=== PATIENT | male | born 1935 | race Caucasian/White ===

== ENCOUNTER 2017-10-09 20:10 | Emergency (ER) | payer OTHER, MEDICARE ==
[2017-10-09] MEDS ORDERED: ALBUTEROL 2.5 MG/3 ML NEB SOL ONE (20:43)
[2017-10-09] MEDS ORDERED: IPRATROPIUM BROM 0.5MG/2.5ML ONE (20:43)
[2017-10-09 20:48] LABS: Absolute Lymphocytes (CBC) 0.9 K/uL (0.7-4.9); Absolute Monocytes 0.8 K/uL (0.1-1.3); Absolute Neutrophil 3.2 K/uL (1.8-8.0); Basophils % 0.6 % (0-1.3); Eosinophils % 5.8 % (0-4.4); Hematocrit 37.9 % (39.6-49.0); MCH 30.8 pg (27.0-35.0); MCV 91.8 fL (80-100); MPV 7.2 fL (7.6-11.3); Monocytes % 15.3 % (3.3-12.3); RBC Red Blood Cell Count 4.13 M/uL (4.33-5.43)
--- NOTE | 2017-10-09 20:51 | RAD REPORT ---
EXAM DESCRIPTION: CT - Head Brain Wo Cont - 10/09/2017 8:43 pm CLINICAL HISTORY: general weakness Drowsiness COMPARISON: Head C Spine Mpr Wo Con dated 07/13/2016 TECHNIQUE: All CT scans are performed using dose optimization technique as appropriate and may inclu de automated exposure control or mA/KV adjustment according to patient size. FINDINGS: No intracranial hemorrhage, hydrocephalus or extra-axial fluid collection.No areas of brai n edema or evidence of midline shift. The paranasal sinuses and mastoids are clear. The calvarium is intact. Mild vertebral atherosclerosis . IMPRESSION: No acute intracranial abnormality.
[2017-10-09 20:58] LABS: Protime INR 1.06
--- NOTE | 2017-10-09 21:00 | RAD REPORT ---
EXAM DESCRIPTION: RAD - Chest Single View - 10/09/2017 8:53 pm CLINICAL HISTORY: COUGH Chest pain. COMPARISON: Chest Single View dated 07/13/2016; CHEST SINGLE VIEW dated 12/29/2010; CHEST SINGLE VIEW dated 12/08/2008; CHEST SINGLE VIEW dated 09/07/2006 FINDINGS: Portable technique limits examination quality. The lungs are grossly clear. The heart is normal in size. No displaced fractures.Calcified AP window lymph node likely related to previous granulomatous infection. Prominent degenerative change in both shoulders. IMPRESSION: No acute intrathoracic process suspected.
[2017-10-09 21:09] LABS: Bilirubin Direct 0.1 mg/dL (0-0.2); Bilirubin Total 0.4 mg/dL (0.2-1.0); CKMB Creatine Kinase MB 1.5 ng/mL (0.3-3.6); Potassium 3.7 mmol/L (3.5-5.1); Protein, Total 6.9 g/dL (6.4-8.2)
[2017-10-09] MEDS ORDERED: NA CHLORIDE 0.9% 1,000 ML ONE (21:41)
[2017-10-09] MEDS ORDERED: NA CHLORIDE 0.9% 250 ML ONE (21:41)
[2017-10-09 22:02] LABS: Urine Bacteria <20 /HPF (NONE SEEN); Urine RBC <5 /HPF (NONE SEEN)
[2017-10-09 22:03] LABS: Urine Culture Reflex Order NOT NEEDED
[2017-10-09 22:05] LABS: Blood Morphology Comment NOT SEEN (NOT SEEN); Platelet Estimate ADEQ
[2017-10-09 22:09] LABS: Urine Blood NEGATIVE (NEG); Urine Glucose NEGATIVE (NEG); Urine Protein 1+ (NEG)
--- NOTE | 2017-10-09 22:48 | ER ---
Nurse's Notes [facility] Name: Prasanth Barclay Sr Age: 82 yrs Sex: Male : 1935 Arrival Date: 10/09/2017 Time: 20:12 Bed 17 Private MD: Diagnosis: Cough Presentation: 10/09 20:09 Presenting complaint: EMS states: that they were toned for possible sepsis and low bp fc of 90/62. Upon there arrival pt noted to have wheezing and a cough. EMS was told that pt had syncopal episode yesterday. On EMS pts sbp was in the 150's and his heart rate fo in the 60's. Son arrived to room to state that he was having trouble waking pt up just before dinner. Transition of care: patient was received from another setting of care ([facility]-term [facility]. Onset of symptoms was October 09, 2017. Risk Assessment: Do you want to hurt yourself or someone else? Patient reports no desire to harm self or others. Initial Sepsis Screen: Does the patient meet any 2 criteria? No. Patient's initial sepsis screen is negative. Does the patient have a suspected source of infection? No. Patient's initial sepsis screen is negative. Care prior to arrival: Medication(s) given: Albuterol Neb x 1, Atrovent Neb x 1. 20:09 Method Of Arrival: EMS: [facility] 20:09 Acuity: MARYLU 3 fc Historical: - Allergies: 20:31 No Known Allergies; fc - Home Meds: 20:31 acetaminophen 500 mg Oral tab 1 tab q6hr prn [Active]; Aricept 5 mg Oral tab 1 tab once fc daily [Active]; aspirin 81 mg Oral TbEC 1 tab once daily [Active]; Lipitor 20 mg Oral tab 1 tab nightly [Active]; metoprolol tartrate 25 mg oral tab 1 tab once daily [Active]; - PMHx: 20:31 High Cholesterol; Hypertension; Dementia; muscle weakness; Hypothyroidism; Angina; fc - Immunization history:: Last tetanus immunization: unknown, Pneumococcal vaccine is up to date. - Social history:: Smoking status: Patient/guardian denies using tobacco. - Ebola Screening: : Patient negative for fever greater than or equal to 101.5 degrees Fahrenheit, and additional compatible Ebola Virus Disease symptoms Patient denies exposure to infectious person Patient denies travel to an Ebola-affected area in the 21 days before illness onset. Screenin:19 Abuse screen: Denies threats or abuse. Nutritional screening: No deficits noted. jd3 Tuberculosis screening: No symptoms or risk factors identified. Fall Risk Ambulatory Aid- Crutches/Cane/Walker (15 pts). Gait- Normal/Bed Rest/Wheelchair (0 pts) Mental Status- Overestimates/Forgets Limitations (15 pts.). Total Cisneros Fall Scale indicates Low Risk Score (25-44 pts). Fall prevention measures have been instituted. Side Rails Up X 2 Placed close to Nursing Station Frequent Obs/Assesments occuring Family Present and informed to notify staff if they need to leave bedside. Assessment: 20:16 General: Appears in no apparent distress. Behavior is calm, cooperative. Pain: Denies jd3 pain. Neuro: Level of Consciousness is awake, alert, obeys commands, Oriented to person, situation, Moves all extremities. Speech is normal, Facial symmetry appears normal, Pupils are PERRLA, Intact pt with history of dementia.. Cardiovascular: Heart tones S1 S2 present Capillary refill < 3 seconds Patient's skin is warm and dry. Respiratory: Airway is patent Respiratory effort is even, unlabored, Respiratory pattern is regular, symmetrical, Breath sounds are clear bilaterally. Parent/caregiver reports the patient having cough that is productive. GI: Abdomen is round Bowel sounds present X 4 quads. Abd is soft and non tender X 4 quads. Patient currently denies diarrhea, nausea, vomiting. : No signs and/or symptoms were reported regarding the genitourinary system. EENT: No signs and/or symptoms were reported regarding the EENT system. Derm: Skin is intact, Skin is dry, Skin is normal, Skin temperature is warm. Musculoskeletal: Circulation, motion, and sensation intact. Range of motion: intact in all extremities. 21:55 Reassessment: Patient and/or family updated on plan of care and expected duration. Pain ea level reassessed. Pt resting with eyes closed, respirations even and unlabored, chest expansions even and symmetrical. No s/s of pain or discomfort noted at this time. 22:43 Reassessment: Patient appears in no apparent distress at this time. No changes from jd3 previously documented assessment. Patient and/or family updated on plan of care and expected duration. Pain level reassessed. 23:16 Reassessment: Patient appears in no apparent distress at this time. No changes from jd3 previously documented assessment. Patient and/or family updated on plan of care and expected duration. Pain level reassessed. pt's family reported understanding of discharge instructions, assisted pt to front of ER with wheelchair. Vital Signs: 20:09 BP 156 / 64; Pulse 66; Resp 20; Temp 98.6(O); Pulse Ox 98% on R/A; Weight 77.11 kg (R); fc Height 5 ft. 4 in. (162.56 cm) (R); Pain 0/10; 22:00 BP 152 / 55; Pulse 81; Resp 18; Pulse Ox 98% on R/A; ea 22:41 BP 141 / 52; Pulse 72; Resp 19 S; Pulse Ox 97% on R/A; Pain 0/10; jd3 20:09 Body Mass Index 29.18 (77.11 kg, 162.56 cm) ED Course: 20:09 Arm band placed on Patient placed in an exam room, on a stretcher. fc 20:12 Patient arrived in ED. ds1 20:15 Malcolm Quintanilla, RN is Primary Nurse. jd3 20:20 Leif Benitez PA is PHCP. cp 20:20 Arnulfo Mayfield MD is Attending Physician. cp 20:20 Patient has correct armband on for positive identification. Bed in low position. Call jd3 light in reach. Side rails up X2. Adult w/ patient. 20:23 Triage completed. fc 20:35 Inserted saline lock: 20 gauge in right antecubital area, using aseptic technique. jd3 Blood collected. 20:42 CT completed. Patient moved to CT via stretcher. Patient moved back from CT. cw1 20:43 CT Head Brain wo Cont In Process Unspecified. EDMS 20:52 Chest Single View XRAY In Process Unspecified. EDMS 21:25 Straight cath inserted, using sterile technique, 16 Fr. Specimen obtained. Returned jd3 clear yellow urine. Patient tolerated well. 22:20 EKG done, by ED staff, reviewed by Leif HUTCHINS. cc 22:47 Arabella Holden MD is Referral Physician. cp 23:00 No provider procedures requiring assistance completed. jd3 23:16 IV discontinued, intact, bleeding controlled, No redness/swelling at site. Pressure jd3 dressing applied. Administered Medications: 21:33 Drug: Albuterol 2.5 mg Route: Inhalation; ea 21:33 Drug: Albuterol - atroVENT (3:1) (2.5 mg - 0.5 mg) 3 ml Route: Nebulizer; ea 22:06 Follow up: Response: No adverse reaction ea 21:51 Drug: NS 0.9% 1000 ml Route: IV; Rate: 75 ml/hr; Site: right antecubital; ea 23:18 Follow up: Response: No adverse reaction; IV Status: Order to discontinue infusion jd3 21:52 Drug: NS 0.9% 250 ml Route: IV; Rate: bolus; Site: right antecubital; ea 22:06 Follow up: Response: No adverse reaction; IV Status: Completed infusion; IV Intake: ea 250ml Intake: 22:06 IV: 250ml; Total: 250ml. ea Outcome: 22:47 Discharge ordered by MD. cp 23:15 Discharged to home via wheelchair, with family. jd3 23:15 Condition: stable 23:15 Discharge instructions given to family, Instructed on discharge instructions, follow up and referral plans. medication usage, Demonstrated understanding of instructions, follow-up care, medications, Prescriptions given X 2. 23:17 Patient left the ED. jd3 Signatures: Dispatcher [employer] EDMS Robyn Sanchez, RN Gia Lucio ds1 Leigh Davis cw1 Roma Epps cc Leif Benitez PA PA cp Antunez, Elena, RN RN ea Davies, Jonathon, RN RN jd3 Corrections: (The following items were deleted from the chart) 20:25 20:09 Presenting complaint: EMS states: that they were toned for possible sepsis and fc low bp of 90/62. Upon there arrival pt noted to have wheezing and a cough. EMS was told that pt had syncopal episode yesterday. Son arrived to room to state that he was having trouble waking pt up just before dinner. fc 22:43 21:20 Straight cath inserted, using sterile technique, 16 Fr. Specimen obtained. jd3 Returned clear yellow urine. Patient tolerated well. jd3
--- NOTE | 2017-10-09 22:48 | EDPHYS ---
Physician Documentation [facility] Name: Prasanth Barclay Sr Age: 82 yrs Sex: Male : 1935 Arrival Date: 10/09/2017 Time: 20:12 Bed 17 Private MD: ED Physician Arnulfo Mayfield HPI: 10/09 21:00 This 82 yrs old Male presents to ER via EMS with complaints of Cough. cp 21:00 The patient or guardian reports cough, that is intermittent, with productive sputum. cp Onset: The symptoms/episode began/occurred 1 week(s) ago. Severity of symptoms: in the emergency department the symptoms are unchanged. Associated signs and symptoms: Pertinent negatives: chest pain, diarrhea, fever, vomiting. Unable to obtain HPI due to baseline dementia. 21:00 Son reports incident today prior to dinner meal in which patient was difficult to awake cp from sleep. Historical: - Allergies: 20:31 No Known Allergies; fc - Home Meds: 20:31 acetaminophen 500 mg Oral tab 1 tab q6hr prn [Active]; Aricept 5 mg Oral tab 1 tab once fc daily [Active]; aspirin 81 mg Oral TbEC 1 tab once daily [Active]; Lipitor 20 mg Oral tab 1 tab nightly [Active]; metoprolol tartrate 25 mg oral tab 1 tab once daily [Active]; - PMHx: 20:31 High Cholesterol; Hypertension; Dementia; muscle weakness; Hypothyroidism; Angina; fc - Immunization history:: Last tetanus immunization: unknown, Pneumococcal vaccine is up to date. - Social history:: Smoking status: Patient/guardian denies using tobacco. - Ebola Screening: : Patient negative for fever greater than or equal to 101.5 degrees Fahrenheit, and additional compatible Ebola Virus Disease symptoms Patient denies exposure to infectious person Patient denies travel to an Ebola-affected area in the 21 days before illness onset. ROS: 21:05 Constitutional: Negative for body aches, chills, fever, poor PO intake. cp 21:05 Eyes: Negative for injury, pain, redness, and discharge. cp 21:05 ENT: Negative for drainage from ear(s), ear pain, sore throat, difficulty swallowing, difficulty handling secretions. 21:05 Cardiovascular: Negative for chest pain, edema, palpitations. 21:05 Respiratory: Positive for cough, Negative for wheezing. 21:05 Abdomen/GI: Negative for abdominal pain, nausea, vomiting, and diarrhea, black/tarry stool, rectal bleeding. 21:05 Back: Negative for pain at rest, pain with movement, radiated pain. 21:05 : Negative for urinary symptoms. 21:05 Skin: Negative for cellulitis, rash. 21:05 Neuro: Negative for altered mental status, dizziness, headache, seizure activity, speech changes, weakness. 21:05 All other systems are negative. Exam: 21:10 Constitutional: The patient appears in no acute distress, alert, awake, cp non-diaphoretic, non-toxic, well developed, well nourished. 21:10 Head/Face: Normocephalic, atraumatic. cp 21:10 Eyes: Periorbital structures: appear normal, Pupils: equal, round, and reactive to light and accomodation, Extraocular movements: intact throughout, Conjunctiva: normal, no exudate, no injection, Sclera: no appreciated abnormality, Lids and lashes: appear normal, bilaterally. 21:10 ENT: External ear(s): are unremarkable, Ear canal(s): are normal, clear, TM's: are normal, no evidence of bulging, no erythema, Nose: is normal, Mouth: Lips: moist, Oral mucosa: pink and intact, moist, Posterior pharynx: is normal, airway is patent, no erythema, no exudate, Voice: is normal. 21:10 Neck: ROM/movement: is normal, is supple, without pain, no range of motions limitations, no meningismus, no nuchal rigidity. 21:10 Chest/axilla: Inspection: normal, Palpation: is normal, no crepitus, no tenderness. 21:10 Cardiovascular: Rate: normal, Rhythm: regular, Edema: mild bilateral lower leg, JVD: is not appreciated. 21:10 Respiratory: the patient does not display signs of respiratory distress, Respirations: normal, no use of accessory muscles, no retractions, no splinting, no tachypnea, labored breathing, is not present, Breath sounds: are clear throughout, no decreased breath sounds, no stridor, no wheezing. 21:10 Abdomen/GI: Inspection: abdomen appears normal, Bowel sounds: active, all quadrants, Palpation: abdomen is soft and non-tender, in all quadrants, rebound tenderness, is not appreciated, voluntary guarding, is not appreciated, involuntary guarding, is not appreciated. 21:10 Back: pain, is absent, ROM is normal. 21:10 Musculoskeletal/extremity: Exam is negative for calf tenderness, decreased range of motion, deformity, injury. 21:10 Skin: cellulitis, is not appreciated, no rash present. 21:10 Neuro: Orientation: no acute changes, per family, Mentation: no acute changes, per family, able to follow commands, Cerebellar function: Romberg testing is negative, Motor: moves all fours, strength is normal. 22:30 ECG was reviewed by the Attending Physician. cp Vital Signs: 20:09 BP 156 / 64; Pulse 66; Resp 20; Temp 98.6(O); Pulse Ox 98% on R/A; Weight 77.11 kg (R); fc Height 5 ft. 4 in. (162.56 cm) (R); Pain 0/10; 22:00 BP 152 / 55; Pulse 81; Resp 18; Pulse Ox 98% on R/A; ea 22:41 BP 141 / 52; Pulse 72; Resp 19 S; Pulse Ox 97% on R/A; Pain 0/10; jd3 20:09 Body Mass Index 29.18 (77.11 kg, 162.56 cm) fc MDM: 20:21 Patient medically screened. 22:45 Data reviewed: vital signs, nurses notes, lab test result(s), EKG, radiologic studies, cp CT scan, plain films. 22:45 Test interpretation: by ED physician or midlevel provider: ECG, plain radiologic cp studies. 10/09 20:26 Order name: Urine Microscopic Only; Complete Time: 22:08 10/09 22:09 Interpretation: Reviewed. 10/09 20: Order name: Basic Metabolic Panel; Complete Time: 21:22 cp 10/09 21:22 Interpretation: Normal except: BUN 22; GFR 58. 10/09 20:26 Order name: Blood Culture Adult (2) 10/10 19: Order name: CBC with Diff; Complete Time: 22:08 cp 10/09 20:23 Interpretation: Normal except: RBC 4.13; HGB 12.7; HCT 37.9; MPV 7.2; MN% 15.3; cp EOSINOPHIL % 5.8. 10/09 20:26 Order name: Ckmb; Complete Time: 21:22 10/09 20:26 Order name: CPK; Complete Time: 21:22 10/09 20:26 Order name: Lactate; Complete Time: 21: 10/09 21:23 Interpretation: LAC 1.5; Reviewed. 10/09 20:26 Order name: LFT's; Complete Time: 21:22 10/09 21:22 Interpretation: Normal except: ALB 3.0; GLOB 3.9; A/G 0.8. 10/09 20:26 Order name: Lipase; Complete Time: 21:22 10/09 20:26 Order name: Procalcitonin; Complete Time: 21:39 10/09 21:39 Interpretation: Reviewed. 10/09 20:26 Order name: Protime (+inr); Complete Time: 21: 10/09 20:26 Order name: Ptt, Activated; Complete Time: 21:22 10/09 20:26 Order name: Troponin (emerg Dept Use Only); Complete Time: 21: 10/09 21:40 Interpretation: TROPED < 0.02; Reviewed. 10/09 20:47 Order name: Influenza Screen (a \T\ B); Complete Time: 22:11 10/09 20:26 Order name: CT Head Brain wo Cont; Complete Time: 21:01 10/09 21:01 Interpretation: Report reviewed. 10/09 20:26 Order name: Cath; Complete Time: 22:25 10/09 20:26 Order name: Chest Single View XRAY; Complete Time: 21:01 10/09 21:40 Interpretation: Report review. 10/09 20:26 Order name: Cardiac monitoring; Complete Time: 20:38 10/09 20:26 Order name: EKG - Nurse/Tech; Complete Time: 22:27 10/09 20:26 Order name: IV Saline Lock - Large Bore; Complete Time: 20:38 10/09 20:26 Order name: Labs collected and sent; Complete Time: 20:38 10/09 20:26 Order name: O2 Per Protocol; Complete Time: 20:38 10/09 21:27 Order name: Urine Dipstick--Ancillary (enter results); Complete Time: 22:11 rg2 10/09 22:11 Interpretation: Normal except: UPROT 1+. cp 10/09 22:03 Order name: Manual Differential; Complete Time: 22:08 EDMS 10/09 22:08 Interpretation: Normal except: BANDS [F] 2. cp 10/09 20:26 Order name: O2 Sat Monitoring; Complete Time: 20:38 cp 10/09 20:26 Order name: Urine Dipstick-Ancillary (obtain specimen); Complete Time: 21:52 cp EC:30 Rate is 85 beats/min. Rhythm is regular. WI interval is normal. QRS interval is cp prolonged at 108 msec. QT interval is normal. No ST changes noted. Interpreted by me. Reviewed by me. Administered Medications: 21:33 Drug: Albuterol 2.5 mg Route: Inhalation; ea 21:33 Drug: Albuterol - atroVENT (3:1) (2.5 mg - 0.5 mg) 3 ml Route: Nebulizer; ea 22:06 Follow up: Response: No adverse reaction ea 21:51 Drug: NS 0.9% 1000 ml Route: IV; Rate: 75 ml/hr; Site: right antecubital; ea 23:18 Follow up: Response: No adverse reaction; IV Status: Order to discontinue infusion jd3 21:52 Drug: NS 0.9% 250 ml Route: IV; Rate: bolus; Site: right antecubital; ea 22:06 Follow up: Response: No adverse reaction; IV Status: Completed infusion; IV Intake: ea 250ml Disposition: 10/09/17 22:47 Discharged to Home. Impression: Cough. - Condition is Stable. - Discharge Instructions: Cool Mist Vaporizers, Cough, Adult. - Prescriptions for Tessalon Perles 100 mg Oral Capsule - take 1 capsule by ORAL route every 8 hours As needed; 15 capsule. Albuterol Sulfate 2.5 mg /3 mL (0.083 %) Inhalation Solution for Nebulization - inhale 1 unit by NEBULIZATION route every 8 hours As needed; 1 box. - Medication Reconciliation Form, Thank You Letter, Antibiotic Education, Prescription Opioid Use form. - Follow up: Arabella Holden MD; When: 2 - 3 days; Reason: Recheck today's complaints. - Problem is new. - Symptoms have improved. Addendum: 10/11/2017 13:13 Co-signature as Attending Physician, Arnulfo Mayfield MD Available for consultation at p s1 all times. . Signatures: Dispatcher [employer] [facility] Robyn Sanchez, RN RN Leif Alcantar PA PA cp Antunez, Elena RN Malcolm Palencia ea RN RN jArnulfo Khalil MD MD ps1 Corrections: (The following items were deleted from the chart) 10/09 22:03 20:53 CBC Smear Scan ordered. [facility] 23:17 22:47 10/09/2017 22:47 Discharged to Home. Impression: Cough. Condition is Stable. jd3 Forms are Medication Reconciliation Form, Thank You Letter, Antibiotic Education, Prescription Opioid Use. Follow up: A Holden; When: 2 - 3 days; Reason: Recheck today's complaints. Problem is new. Symptoms have improved. cp
--- NOTE | 2017-10-11 06:55 | EKG ---
Test Date: 2017-10-09 Test Time: 22:23:51 Vallez Filter Operator: PREET MEASUREMENT RESULTS: Intervals: Rate: 85 SD: 138 QRSD: 108 QT: 360 QTc: 428 [place]: P: 40 SD: 138 QRS: 3 T: 79 INTERPRETIVE STATEMENTS: Normal sinus rhythm Intraventricular conduction delay Borderline ECG Compared to ECG 07/13/2016 19:56:49 Sinus bradycardia no longer present Electronically Signed On 10-11-17 06:54:00 CDT by Dandy Rosa
== END 2017-10-09 23:17 | disposition home or self-care (01) ==
LOC: ER 20:10
DX: R05 Cough (principal); I10 Essential (primary) hypertension; E78.00 Pure hypercholesterolemia, unspecified; F03.90 Unspecified dementia, unspecified severity, without behavioral disturbance, psychotic disturbance, mood disturbance, and anxiety; E03.9 Hypothyroidism, unspecified; Z79.82 Long term (current) use of aspirin
CPT/HCPCS: 36415; 51702; 70450; 71045; 80048; 80076; 82550; 82553; 83605; 83690; 84145; 84484; 85025; 85610; 85730; 87040 ×2; 87804 ×2; 93005; 94640; 96361; 96374; 99285; J7030; 81003; 81015; 96360

== ENCOUNTER 2019-02-09 16:21 | Emergency (ER) | payer OTHER ==
--- NOTE | 2019-02-09 17:06 | RAD REPORT ---
EXAM DESCRIPTION: CT - [id number] - 02/09/2019 4:58 pm CLINICAL HISTORY: Trauma, head and neck injury. fall COMPARISON: Head C Spine Mpr Wo Con dated 07/13/2016; Facial Bones W/ Mpr dated 02/09/2019 TECHNIQUE: Axial 5 mm thick images of the head were obtained. Axial 2 mm thick images of the cervical spine were obtained with sagittal and coronal reconstruction images generated and reviewed. All CT scans are performed using dose optimization technique as appropriate and may include automated exposure control or mA/KV adjustment according to patient size. FINDINGS: CT HEAD WITHOUT CONTRAST: No acute hemorrhage, hydrocephalus or extra-axial collection is identified.Mild generalized brain atr ophy is present with mild periventricular and deep white matter chronic microvascular ischemic change s.No areas of brain edema or midline shift. The paranasal sinuses and mastoids are clear.The calvarium is intact. CT CERVICAL SPINE WITHOUT CONTRAST: No fracture or subluxation.Moderate cervical facet arthrosis and spondylosis present.No prevertebral soft tissues swelling is identified. IMPRESSION: No acute intracranial or cervical spine findings.
--- NOTE | 2019-02-09 17:08 | RAD REPORT ---
EXAM DESCRIPTION: CT - CTFB CLINICAL HISTORY: fall Trauma, pain and swelling to face after fall COMPARISON: <Comparisons> TECHNIQUE: Axial 2 mm thick images of the face were obtained with sagittal and coronal reconstructio n images. All CT scans are performed using dose optimization technique as appropriate and may include automated exposure control or mA/KV adjustment according to patient size. FINDINGS: Examination is mildly degraded by motion artifact. No acute facial bone fracture is seen.T he mandible is intact. The globes and orbital contents are grossly unremarkable.The paranasal sinuses and mastoids are clear . IMPRESSION: Negative for facial bone fracture.The study is mildly limited by motion artifact.
[2019-02-09] MEDS ORDERED: LIDOCAINE 1% MPF 5 ML VIAL ONE (17:57)
--- NOTE | 2019-02-09 18:31 | ER ---
Nurse's Notes [facility] Name: Prasanth Barclay Sr Age: 83 yrs Sex: Male : 1935 Arrival Date: 02/09/2019 Time: 16:27 Bed 17 Private MD: Diagnosis: Fall on same level from slipping, tripping and stumbling;Laceration without foreign body of unspecified part of head Presentation: 02/09 16:28 Presenting complaint: EMS states: Patient from [facility] with dementia, who aj1 is not able to walk, decided to try to get up and walk today and fell. Laceration noted to forehead, left cheek, left upper lip. skin tear noted to left arm. Patient denies pain at this time. Patient takes ASA 81 mg daily, but does not otherwise take any blood thinners. Transition of care: patient was not received from another setting of care. Onset of symptoms was February 09, 2019. Risk Assessment: Do you want to hurt yourself or someone else? Patient reports no desire to harm self or others. Initial Sepsis Screen: Does the patient meet any 2 criteria? No. Patient's initial sepsis screen is negative. Does the patient have a suspected source of infection? No. Patient's initial sepsis screen is negative. Care prior to arrival: None. 16:28 Method Of Arrival: EMS: [facility] aj 16:28 Acuity: MARYLU 3 aj1 Triage Assessment: 16:37 General: Appears in no apparent distress. General: Behavior is calm, cooperative. Pain: aj1 Denies pain. Historical: - Allergies: 16:37 No Known Allergies; aj1 - Home Meds: 16:37 Aricept 23 mg oral tab 1 tab once daily [Active]; acetaminophen 500 mg Oral tab 1 tab aj1 q6hr prn [Active]; aspirin 81 mg Oral TbEC 1 tab once daily [Active]; Claritin 10 mg Oral tab 1 tab once daily [Active]; docusate sodium 100 mg Oral cap 1 cap 2 times per day [Active]; Flomax 0.4 mg Oral cp24 1 cap once daily [Active]; Lipitor 20 mg Oral tab 1 tab nightly [Active]; memantine 10 mg oral tab 1 tab 2 times per day [Active]; sertraline 100 mg oral tab 1 tab once daily [Active]; metoprolol tartrate 25 mg Oral tab 1 tab once daily [Active]; Vitamin D3 5,000 unit oral tab daily [Active]; - PMHx: 16:37 Hypertension; High Cholesterol; Hypothyroidism; BPH; constipation; Depression; aj1 Dementia; Angina; MUSCLE WEAKNESS; dysphagia; - Immunization history:: Adult Immunizations up to date. - Social history:: Smoking status: Patient/guardian denies using tobacco. - Ebola Screening: : Patient denies travel to an Ebola-affected area in the 21 days before illness onset. Screenin:39 Abuse screen: Denies threats or abuse. Denies injuries from another. Nutritional aj1 screening: No deficits noted. Tuberculosis screening: No symptoms or risk factors identified. Assessment: 16:39 General: Appears in no apparent distress. comfortable, Behavior is calm, cooperative, aj1 appropriate for age. Pain: Denies pain. Neuro: Level of Consciousness is awake, alert, obeys commands, Oriented to person. Cardiovascular: Heart tones S1 S2 present Patient's skin is warm and dry. Rhythm is sinus bradycardia. Respiratory: Airway is patent Respiratory effort is even, unlabored, Respiratory pattern is regular, symmetrical. GI: No signs and/or symptoms were reported involving the gastrointestinal system. : No signs and/or symptoms were reported regarding the genitourinary system. EENT: No signs and/or symptoms were reported regarding the EENT system. Derm: Skin is pink, warm \T\ dry. Musculoskeletal: Circulation, motion, and sensation intact. Injury Description: Laceration sustained to forehead, left cheek and mouth skin tear left arm. 17:39 Reassessment: Patient appears in no apparent distress at this time. No changes from aj1 previously documented assessment. Patient and/or family updated on plan of care and expected duration. Pain level reassessed. Patient is alert, oriented x 3, equal unlabored respirations, skin warm/dry/pink. 18:30 Reassessment: Patient appears in no apparent distress at this time. No changes from aj1 previously documented assessment. Patient and/or family updated on plan of care and expected duration. Pain level reassessed. 19:16 Reassessment: Patient appears in no apparent distress at this time. No changes from aj1 previously documented assessment. Patient and/or family updated on plan of care and expected duration. Pain level reassessed. Vital Signs: 16:32 BP 150 / 66; Pulse 56; Resp 14; Temp 98.0(O); Pulse Ox 100% ; lt1 17:49 BP 147 / 52; Pulse 53; Resp 18; Pulse Ox 100% on R/A; aj1 18:50 BP 128 / 75; Pulse 71; Resp 18; Pulse Ox 100% on R/A; aj1 ED Course: 16:27 Patient arrived in ED. aj1 16:28 Carlyn Elias RN is Primary Nurse. aj1 16:30 Triage completed. aj1 16:31 Leif Benitez PA is PHCP. cp 16:31 Shawn Olvera MD is Attending Physician. cp 16:37 Arm band placed on. aj1 16:39 Patient has correct armband on for positive identification. awake overnight monitor on. Pulse aj1 ox on. NIBP on. 16:39 No provider procedures requiring assistance completed. aj1 16:58 CT completed. Patient tolerated procedure well. Patient moved to CT. Patient moved back mn from CT. 16:58 CT Head C Spine In Process Unspecified. EDMS 16:58 CT Facial Bones W/O Con In Process Unspecified. EDMS Administered Medications: No medications were administered Outcome: 18:30 Discharge ordered by . cp 19:37 Patient left the ED. aj1 Signatures: Dispatcher [employer] EDMS Carlyn Elais RN RN aj1 Leif Benitez PA PA Aiden Christian Leah lt1
--- NOTE | 2019-02-09 18:31 | EDPHYS ---
Physician Documentation [facility] Name: Prasanth Barclay Sr Age: 83 yrs Sex: Male : 1935 Arrival Date: 02/09/2019 Time: 16:27 Bed 17 Private MD: ED Physician Shawn Olvera HPI: 02/09 16:48 This 83 yrs old Male presents to ER via EMS with complaints of Fall Injury. cp 16:48 Details of fall: The patient fell from an upright position, while standing. Onset: The cp symptoms/episode began/occurred today. Associated injuries: The patient sustained injury to the head, laceration, of the mouth and left cheek and above left eye. Historical: - Allergies: 16:37 No Known Allergies; aj1 - Home Meds: 16:37 Aricept 23 mg oral tab 1 tab once daily [Active]; acetaminophen 500 mg Oral tab 1 tab aj1 q6hr prn [Active]; aspirin 81 mg Oral TbEC 1 tab once daily [Active]; Claritin 10 mg Oral tab 1 tab once daily [Active]; docusate sodium 100 mg Oral cap 1 cap 2 times per day [Active]; Flomax 0.4 mg Oral cp24 1 cap once daily [Active]; Lipitor 20 mg Oral tab 1 tab nightly [Active]; memantine 10 mg oral tab 1 tab 2 times per day [Active]; sertraline 100 mg oral tab 1 tab once daily [Active]; metoprolol tartrate 25 mg Oral tab 1 tab once daily [Active]; Vitamin D3 5,000 unit oral tab daily [Active]; - PMHx: 16:37 Hypertension; High Cholesterol; Hypothyroidism; BPH; constipation; Depression; aj1 Dementia; Angina; MUSCLE WEAKNESS; dysphagia; - Immunization history:: Adult Immunizations up to date. - Social history:: Smoking status: Patient/guardian denies using tobacco. - Ebola Screening: : Patient denies travel to an Ebola-affected area in the 21 days before illness onset. ROS: 17:00 Constitutional: Negative for body aches, chills, fever, poor PO intake. cp 17:00 Eyes: Negative for injury, pain, redness, and discharge. cp 17:00 Neck: Negative for stiffness. 17:00 Cardiovascular: Negative for chest pain. 17:00 Respiratory: Negative for cough, shortness of breath, wheezing. 17:00 Abdomen/GI: Negative for abdominal pain, vomiting, diarrhea, constipation, black/tarry stool, rectal bleeding. 17:00 MS/extremity: Negative for injury or acute deformity. 17:00 Skin: Positive for laceration(s), of the left cheek and left upper lip, Negative for cellulitis, rash. 17:00 Neuro: Negative for altered mental status, headache, loss of consciousness, syncope, weakness. 17:00 All other systems are negative. Exam: 17:05 Constitutional: The patient appears in no acute distress, alert, non-diaphoretic, cp non-toxic, well developed, well nourished. 17:05 Head/face: Noted is a laceration(s), of the forehead and left cheek and upper lip. cp 17:05 Eyes: Periorbital structures: appear normal, Pupils: equal, round, and reactive to light and accomodation, Extraocular movements: intact throughout, Conjunctiva: normal, Lids and lashes: appear normal, bilaterally. 17:05 ENT: External ear(s): are unremarkable, Ear canal(s): are normal, clear, TM's: dullness, bilaterally, Nose: is normal, Mouth: is normal, Posterior pharynx: is normal, airway is patent, no erythema, no exudate. 17:05 Neck: C-spine: vertebral tenderness, is not appreciated, crepitus, is not appreciated. 17:05 Chest/axilla: Inspection: normal, Palpation: is normal, no crepitus, no tenderness. 17:05 Cardiovascular: Rate: bradycardic, Rhythm: regular, Pulses: Pulses are 2+ in right radial artery and left radial artery. 17:05 Respiratory: the patient does not display signs of respiratory distress, Respirations: normal, no use of accessory muscles, no retractions, no splinting, no tachypnea, labored breathing, is not present, Breath sounds: are clear throughout. 17:05 Abdomen/GI: Inspection: abdomen appears normal, Palpation: abdomen is soft and non-tender, in all quadrants. 17:05 Neuro: Orientation: no acute changes, per family, Mentation: no acute changes, per family. Vital Signs: 16:32 BP 150 / 66; Pulse 56; Resp 14; Temp 98.0(O); Pulse Ox 100% ; lt1 17:49 BP 147 / 52; Pulse 53; Resp 18; Pulse Ox 100% on R/A; aj1 18:50 BP 128 / 75; Pulse 71; Resp 18; Pulse Ox 100% on R/A; aj1 Laceration: 18:23 Wound Repair of 1.5cm ( 0.6in ) subcutaneous laceration to upper vermilion border. cp Distal neuro/vascular/tendon intact. Anesthesia: Local anesthetic administered with 2 mls of 1% lidocaine. Wound prep: Moderate cleansing, Wound explored, Copious irrigation. Skin closed with 3 6-0 Prolene using simple sutures and sterile technique. Patient tolerated well. MDM: 16:38 Patient medically screened. cp 18:00 Differential diagnosis: closed head injury, contusion, fracture, laceration, multiple cp trauma. 18:30 Data reviewed: vital signs, nurses notes, radiologic studies, CT scan. cp 18:30 Counseling: I had a detailed discussion with the patient and/or guardian regarding: the cp historical points, exam findings, and any diagnostic results supporting the discharge/admit diagnosis, radiology results, to return to the emergency department if symptoms worsen or persist or if there are any questions or concerns that arise at home. Response to treatment: the patient's symptoms have markedly improved after treatment, and as a result, I will discharge patient. 18:30 ED course: VSS. Wounds cleaned and upper lip laceration closed as noted. Will discharge cp back to [facility] for continued monitoring. 02/09 16:42 Order name: CT Head C Spine; Complete Time: 17:16 02/09 16:42 Order name: CT Facial Bones W/O Con; Complete Time: 17:16 02/09 17:18 Order name: Wound Care: please clean and irrigate wounds; Complete Time: 18:00 cp Administered Medications: No medications were administered Disposition: 20:00 Chart complete. cp 02/10 06:53 Co-signature as Attending Physician, Shawn Olvera MD I agree with the assessment and kdr plan of care. Disposition: 02/09/19 18:30 Discharged to Home. Impression: Fall on same level from slipping, tripping and stumbling, Laceration without foreign body of unspecified part of head. - Condition is Stable. - Discharge Instructions: Head Injury, Adult, Facial Laceration. - Medication Reconciliation Form, Thank You Letter, Antibiotic Education, Prescription Opioid Use form. - Follow up: Emergency Department; When: As needed; Reason: Worsening of condition. - Problem is new. - Symptoms have improved. Signatures: Dispatcher [employer] EDCarlyn Cowan RN RN aj1 Shawn Olvera MD MD kdr Leif Benitez PA PA cp Corrections: (The following items were deleted from the chart) 02/09 19:37 18:30 02/09/2019 18:30 Discharged to Home. Impression: Fall on same level from aj1 slipping, tripping and stumbling; Laceration without foreign body of unspecified part of head. Condition is Stable. Forms are Medication Reconciliation Form, Thank You Letter, Antibiotic Education, Prescription Opioid Use. Follow up: Emergency Department; When: As needed; Reason: Worsening of condition. Problem is new. Symptoms have improved. cp
[2019-02-09 21:09] VITALS: TEMP 98; O2SAT 100
[2019-02-09 21:11] VITALS: BP 128/75
== END 2019-02-09 19:37 | disposition home or self-care (01) ==
LOC: ER 16:21
PROC: 0JQ10ZZ Repair Face Subcutaneous Tissue and Fascia, Open Approach (ICD-10-PCS; principal; 2019-02-09)
DX: S01.81XA Laceration without foreign body of other part of head, initial encounter (principal); W01.0XXA Fall on same level from slipping, tripping and stumbling without subsequent striking against object, initial encounter; Y93.89 Activity, other specified; Y92.9 Unspecified place or not applicable; I10 Essential (primary) hypertension; E78.00 Pure hypercholesterolemia, unspecified; E03.9 Hypothyroidism, unspecified; F03.90 Unspecified dementia, unspecified severity, without behavioral disturbance, psychotic disturbance, mood disturbance, and anxiety; Z79.82 Long term (current) use of aspirin
CPT/HCPCS: 70450; 70486; 72125; 76377; 99284

== ENCOUNTER 2019-07-03 23:03 | Inpatient (IN) | payer OTHER ==
[2019-07-04 00:01] LABS: Absolute Lymphocytes (CBC) 0.9 K/uL (0.7-4.9); Basophils % 0.5 % (0-1.3); Hematocrit 31.2 % (39.6-49.0); MPV 6.5 fL (7.6-11.3); RBC Red Blood Cell Count 3.51 M/uL (4.33-5.43)
[2019-07-04 00:25] LABS: ALT/SGPT 18 U/L (12-78); AST/SGOT 12 U/L (15-37); Albumin 2.5 g/dL (3.4-5.0); Alkaline Phosphatase 91 U/L (45-117); Amylase 131 U/L (25-115); BUN Blood Urea Nitrogen 25 mg/dL (7-18); Bicarbonate 32 mmol/L (21-32); Bilirubin Direct 0.2 mg/dL (0-0.2); Bilirubin Total 0.6 mg/dL (0.2-1.0); CKMB Creatine Kinase MB < 1.0 ng/mL (0.3-3.6); Creatine Phosphokinase 53 U/L (39-308); Glucose Level 94 mg/dL (74-106); Lipase 56 U/L (73-393); Potassium 4.1 mmol/L (3.5-5.1); Sodium Level 139 mmol/L (136-145); Troponin (Emerg Dept Use Only) < 0.02 ng/mL (0.0-0.045)
[2019-07-04 00:29] LABS: Protime INR 1.14
[2019-07-04 01:36] LABS: Blood Morphology Comment NOTED (NOT SEEN); Platelet Estimate DECR
[2019-07-04 01:39] LABS: Urine Blood 1+ (NEG); Urine Glucose NEGATIVE (NEG); Urine Protein TRACE (NEG); Urine Specific Gravity 1.025 (1.005-1.030)
[2019-07-04 01:47] LABS: Urine Bacteria 20-50 /HPF (NONE SEEN); Urine RBC <5 /HPF (NONE SEEN); Urine Urothelial Cells <5 /HPF (NONE SEEN)
--- NOTE | 2019-07-04 02:22 | EDPHYS ---
Physician Documentation [facility] Name: Prasanth aBrclay Sr Age: 84 yrs Sex: Male : 1935 Arrival Date: 07/03/2019 Time: 23:05 Bed 14 Private MD: ED Physician Marcell Daily HPI: 07/03 06:53 This 84 yrs old Male presents to ER via EMS with complaints of Cough, Fever. tw4 06:53 The patient or guardian reports cough. Onset: The symptoms/episode began/occurred tw4 today. Severity of symptoms: At their worst the symptoms were moderate, in the emergency department the symptoms are unchanged. The patient has not experienced similar symptoms in the past. 06:56 Modifying factors: The symptoms are alleviated by nothing, the symptoms are aggravated tw4 by nothing. Historical: - Allergies: 07/02 23:10 No Known Allergies; rr5 - Home Meds: 23:10 acetaminophen 500 mg Oral tab 1 tab q6hr prn [Active]; Aricept 23 mg Oral tab 1 tab rr5 once daily [Active]; Claritin 10 mg Oral tab 1 tab once daily [Active]; aspirin 81 mg Oral TbEC 1 tab once daily [Active]; docusate sodium 100 mg Oral cap 1 cap 2 times per day [Active]; Lipitor 20 mg Oral tab 1 tab nightly [Active]; Flomax 0.4 mg Oral cp24 1 cap once daily [Active]; memantine 10 mg Oral tab 1 tab 2 times per day [Active]; metoprolol tartrate 25 mg Oral tab 1 tab once daily [Active]; sertraline 100 mg Oral tab 1 tab once daily [Active]; Vitamin D3 5,000 unit Oral tab daily [Active]; - PMHx: 23:10 Angina; BPH; constipation; Dementia; Depression; DYSPHAGIA; High Cholesterol; rr5 Hypertension; Hypothyroidism; MUSCLE WEAKNESS; - Immunization history:: Adult Immunizations up to date. - Social history:: Smoking status: unknown. ROS: 07/03 06:53 Eyes: Negative for injury, pain, redness, and discharge, Cardiovascular: Negative for tw4 chest pain, palpitations, and edema, Abdomen/GI: Negative for abdominal pain, nausea, vomiting, diarrhea, and constipation, Back: Negative for injury and pain. Constitutional: Positive for fever. Respiratory: Positive for cough, shortness of breath, Negative for dyspnea on exertion, hemoptysis, orthopnea, pleurisy, shortness of breath. Exam: 06:53 Constitutional: This is a well developed, well nourished patient who is awake, alert, tw4 and in no acute distress. Head/Face: Normocephalic, atraumatic. Chest/axilla: Normal chest wall appearance and motion. Nontender with no deformity. No lesions are appreciated. Cardiovascular: Regular rate and rhythm with a normal S1 and S2. No gallops, murmurs, or rubs. Normal PMI, no JVD. No pulse deficits. Respiratory: Lungs have equal breath sounds bilaterally, clear to auscultation and percussion. No rales, rhonchi or wheezes noted. No increased work of breathing, no retractions or nasal flaring. Abdomen/GI: Soft, non-tender, with normal bowel sounds. No distension or tympany. No guarding or rebound. No evidence of tenderness throughout. MS/ Extremity: Pulses equal, no cyanosis. Neurovascular intact. Full, normal range of motion. Neuro: Awake and alert, GCS 15, oriented to person, place, time, and situation. Cranial nerves II-XII grossly intact. Motor strength 5/5 in all extremities. Sensory grossly intact. Cerebellar exam normal. Normal gait. Vital Signs: 07/02 23:05 BP 105 / 54; Pulse 54; Resp 16; Temp 98.9; Pulse Ox 98% ; rr5 07/03 00:20 BP 109 / 63; Pulse 57; Resp 16; Temp 98.7(O); Pulse Ox 98% on R/A; Pain 0/10; ls4 02:15 BP 122 / 49; Pulse 52; Resp 18; Pulse Ox 100% on R/A; wh 03:30 BP 123 / 97; Pulse 53; Resp 18; Pulse Ox 100% on R/A; wh MDM: 07/02 23:07 Patient medically screened. tw4 07/03 06:58 Differential Diagnosis: Obstructed Airway Bronchitis Influenza. Data reviewed: vital tw4 signs, nurses notes. Data reviewed: lab test result(s), cardiac enzymes, CBC, electrolytes, hepatic panel, radiologic studies, CT scan, plain films. Data interpreted: Pulse oximetry: Interpretation: normal. Test interpretation: by ED physician or midlevel provider: ECG, plain radiologic studies. Counseling: I had a detailed discussion with the patient and/or guardian regarding: the historical points, exam findings, and any diagnostic results supporting the discharge/admit diagnosis, lab results, radiology results. Physician consultation: Alex Holden MD regarding admission, patient's condition, and will see patient in inpatient room. Admission orders: after a detailed discussion of the patient's condition and case, the admit orders are written by me. 07/02 23:07 Order name: Amylase, Serum; Complete Time: :07/02 23:07 Order name: Basic Metabolic Panel; Complete Time: :07/02 23:07 Order name: Blood Culture Adult (2) 07/02 23:07 Order name: CBC with Diff; Complete Time: 03:29 07/03 03:29 Interpretation: RBC 3.51; HGB 10.4; HCT 31.2; RDW 16.1; MPV 6.5; LYM% 9.0; RIC% 86.6; tw4 NEUT A 8.7. 07/02 23:07 Order name: Ckmb; Complete Time: :07/02 23:07 Order name: CPK; Complete Time: :07/02 23:07 Order name: Lactate; Complete Time: :07/02 23:07 Order name: LFT's; Complete Time: :07/02 23:07 Order name: Lipase; Complete Time: :07/02 23:07 Order name: Procalcitonin; Complete Time: :07/02 23:07 Order name: Protime (+inr); Complete Time: :07/02 23:07 Order name: Ptt, Activated; Complete Time: :07/02 23:07 Order name: Troponin (emerg Dept Use Only); Complete Time: :07/02 23:07 Order name: Urine Microscopic Only 07/02 23:07 Order name: Chest Single View XRAY 07/02 23:07 Order name: Cardiac monitoring; Complete Time: 00:16 07/02 23:07 Order name: EKG - Nurse/Tech; Complete Time: 02:17 07/02 23:07 Order name: IV Saline Lock - Large Bore; Complete Time: 00:16 4 07/02 23:07 Order name: Labs collected and sent; Complete Time: 00:17 4 07/02 23:07 Order name: O2 Per Protocol; Complete Time: 00:17 4 07/02 23:07 Order name: O2 Sat Monitoring; Complete Time: 00:17 4 07/02 23:07 Order name: Urine Dipstick-Ancillary (obtain specimen); Complete Time: 00:17 07/02 23:07 Order name: CT Chest For PE Angio tw4 07/03 00:14 Order name: Manual Differential EDMS 07/03 00:58 Order name: Urine Dipstick--Ancillary (enter results) [facility] 07/03 01:48 Order name: Urine Culture EDWA Administered Medications: 03:48 Drug: Rocephin - (cefTRIAXone) 1 grams Route: IVPB; Infused Over: 30 mins; Site: left antecubital; 04:22 Follow up: Response: No adverse reaction; IV Status: Completed infusion 03:50 Drug: AZITHromycin 500 mg Route: IVPB; Infused Over: 1 hrs; Site: left antecubital; 04:21 Follow up: Response: No adverse reaction; IV Status: Infusion continued upon admission Disposition: 07/04/19 02:21 Hospitalization ordered by Alex Holden for Inpatient Admission. Preliminary diagnosis are Fever of other and unknown origin, Anemia, unspecified. - Bed requested for Telemetry/MedSurg (Inpatient). - Status is Inpatient Admission. - Condition is Fair. - Problem is new. - Symptoms are unchanged. Signatures: Dispatcher [employer] EDWA Regina Barreto RN RN Ludmila Lira Marcell Daily MD MD tw4 Robert Ricks RN RN rr5 Leida Rosa RN RN Corrections: (The following items were deleted from the chart) 02:46 02:21 Hospitalization Ordered by Alex Holden MD for Inpatient Admission. Preliminary diagnosis is Fever of other and unknown origin. Bed requested for Telemetry/MedSurg (Inpatient). Status is Inpatient Admission. Condition is Fair. Problem is new. Symptoms are unchanged. 4 03:30 02:46 07/04/2019 02:21 Hospitalization Ordered by Alex Holden MD for Inpatient tw4 Admission. Preliminary diagnosis is Fever of other and unknown origin. Bed requested for Telemetry/MedSurg (Inpatient). Status is Inpatient Admission. Condition is Fair. Problem is new. Symptoms are unchanged. mw 04:22 03:30 07/04/2019 02:21 Hospitalization Ordered by Alex Holden MD for Inpatient wh Admission. Preliminary diagnosis is Fever of other and unknown origin; Anemia, unspecified. Bed requested for Telemetry/MedSurg (Inpatient). Status is Inpatient Admission. Condition is Fair. Problem is new. Symptoms are unchanged. tw4
--- NOTE | 2019-07-04 02:22 | ER ---
Nurse's Notes [facility] Name: Prasanth Barclay Sr Age: 84 yrs Sex: Male : 1935 Arrival Date: 07/03/2019 Time: 23:05 Bed 14 Private MD: Diagnosis: Fever of other and unknown origin;Anemia, unspecified Presentation: 07/02 23:05 Chief complaint: EMS states: we were toned out for a patient complaints of dry cough rr5 and fever (T 100.8F), reported to them by [facility] staff. Coronavirus screen: The patient has NOT traveled to a country currently being monitored by the [facility] within the last 14 days. Proceed with normal triage procedures. Ebola Screen: Patient negative for fever greater than or equal to 101.5 degrees Fahrenheit, and additional compatible Ebola Virus Disease symptoms Patient denies exposure to infectious person. Patient denies travel to an Ebola-affected area in the 21 days before illness onset. Initial Sepsis Screen: Does the patient meet any 2 criteria? No. Patient's initial sepsis screen is negative. Does the patient have a suspected source of infection? No. Patient's initial sepsis screen is negative. Risk Assessment: Do you want to hurt yourself or someone else? Patient reports no desire to harm self or others. Note EMS stated patient VS BP 110/58 mmHg O2 sat 98, H 61 bpm. patient has history of dementia. Onset of symptoms was July 03, 2019. 23:05 Method Of Arrival: EMS: [facility] rr5 23:05 Acuity: MARYLU 3 rr5 23:05 Transition of care: patient was received from another setting of care (long-term care rr5 facility), [facility]. Historical: - Allergies: 23:10 No Known Allergies; rr5 - Home Meds: 23:10 acetaminophen 500 mg Oral tab 1 tab q6hr prn [Active]; Aricept 23 mg Oral tab 1 tab rr5 once daily [Active]; Claritin 10 mg Oral tab 1 tab once daily [Active]; aspirin 81 mg Oral TbEC 1 tab once daily [Active]; docusate sodium 100 mg Oral cap 1 cap 2 times per day [Active]; Lipitor 20 mg Oral tab 1 tab nightly [Active]; Flomax 0.4 mg Oral cp24 1 cap once daily [Active]; memantine 10 mg Oral tab 1 tab 2 times per day [Active]; metoprolol tartrate 25 mg Oral tab 1 tab once daily [Active]; sertraline 100 mg Oral tab 1 tab once daily [Active]; Vitamin D3 5,000 unit Oral tab daily [Active]; - PMHx: 23:10 Angina; BPH; constipation; Dementia; Depression; DYSPHAGIA; High Cholesterol; rr5 Hypertension; Hypothyroidism; MUSCLE WEAKNESS; - Immunization history:: Adult Immunizations up to date. - Social history:: Smoking status: unknown. Screenin/17 00:21 Abuse screen: Denies threats or abuse. Denies injuries from another. Nutritional ls4 screening: No deficits noted. Tuberculosis screening: No symptoms or risk factors identified. Fall Risk None identified. Assessment: 07/02 23:10 General: Appears in no apparent distress. Behavior is drowsy. Pain: Denies pain. Neuro: ls4 Level of Consciousness is lethargic, Oriented to person, [employer] are weak bilaterally Weakness. Cardiovascular: Capillary refill < 3 seconds Patient's skin is warm and dry. Respiratory: Airway is patent Respiratory effort is even, unlabored, Respiratory pattern is regular. GI: Bowel sounds present X 4 quads. Abd is soft and non tender X 4 quads. Derm: Skin is fragile, Skin is mottled, Skin temperature is warm. 07/03 01:11 Reassessment: Patient appears in no apparent distress at this time. No changes from 4 previously documented assessment. Patient and/or family updated on plan of care and expected duration. Pain level reassessed. Patient is alert, oriented x 3, equal unlabored respirations, skin warm/dry/pink. 02:05 Reassessment: Patient appears in no apparent distress at this time. Patient and/or family updated on plan of care and expected duration. Pain level reassessed. 02:35 Reassessment: Patient appears in no apparent distress at this time. No changes from previously documented assessment. Patient and/or family updated on plan of care and expected duration. Pain level reassessed. Vital Signs: 07/02 23:05 BP 105 / 54; Pulse 54; Resp 16; Temp 98.9; Pulse Ox 98% ; rr5 07/03 00:20 BP 109 / 63; Pulse 57; Resp 16; Temp 98.7(O); Pulse Ox 98% on R/A; Pain 0/10; ls4 02:15 BP 122 / 49; Pulse 52; Resp 18; Pulse Ox 100% on R/A; wh 03:30 BP 123 / 97; Pulse 53; Resp 18; Pulse Ox 100% on R/A; ED Course: 07/02 23:05 Patient arrived in ED. rr5 23:05 Marcell Daily MD is Attending Physician. tw4 23:09 Triage completed. rr5 23:09 Arm band placed on left wrist. rr5 23:12 Patient has correct armband on for positive identification. Placed in gown. Bed in low ls4 position. Call light in reach. Side rails up X2. case monitor on. Pulse ox on. NIBP on. 23:12 No provider procedures requiring assistance completed. Inserted saline lock: 20 gauge ls4 in right antecubital area, using aseptic technique. Blood collected. 23:20 Inserted saline lock: 20 gauge in left antecubital area, using aseptic technique. Blood ls4 collected. 23:20 Initial lab(s) drawn, by me, sent to lab. First set of blood cultures drawn. Patient ls4 maintains SpO2 saturation greater than 95% on room air. 23:36 Radiology exam delayed due to lab results not completed at this time. (BUN/Creatinine). kw1 03 00:01 Radiology exam delayed due to lab results not completed at this time. (BUN/Creatinine). kw1 00:16 Kristen De La O, RN is Primary Nurse. ls4 00:16 Manual Differential Sent. ls4 00:17 Chest Single View XRAY In Process Unspecified. EDMS 00:23 Radiology exam delayed due to lab results not completed at this time. (BUN/Creatinine). kw1 01:14 CT Chest For PE Angio In Process Unspecified. EDMS 02:20 Alex Holden MD is Hospitalizing Provider. tw4 04:22 Patient admitted, IV remains in place. Administered Medications: 03:48 Drug: Rocephin - (cefTRIAXone) 1 grams Route: IVPB; Infused Over: 30 mins; Site: left ah antecubital; 04:22 Follow up: Response: No adverse reaction; IV Status: Completed infusion 03:50 Drug: AZITHromycin 500 mg Route: IVPB; Infused Over: 1 hrs; Site: left antecubital; 04:21 Follow up: Response: No adverse reaction; IV Status: Infusion continued upon admission Outcome: 02:21 Decision to Hospitalize by Provider. tw4 04:00 Admitted to Med/surg accompanied by tech, via stretcher, room 223, with chart, Report wh called to Karen Aguilar RN 04:00 Condition: stable 04:00 Instructed on the need for admit. 04:22 Patient left the ED. Signatures: Dispatcher [employer] EDMS Ludmila Lira Tyler Sabina kw1 Marcell Daily MD MD tw4 Kristen De La O, RN RN ls4 Robert Ricks, RN RN rr5 Leida Rosa RN RN Corrections: (The following items were deleted from the chart) 03:52 02:00 Reassessment: Patient appears in no apparent distress at this time. Patient wh and/or family updated on plan of care and expected duration. Pain level reassessed. 03:52 03:30 Reassessment: Patient appears in no apparent distress at this time. No changes wh from previously documented assessment. Patient and/or family updated on plan of care and expected duration. Pain level reassessed.
[2019-07-04] MEDS ORDERED: IPRATROPIUM BROM 0.5MG/2.5ML NEB PRN ×2 (03:25→18:00)
[2019-07-04] MEDS ORDERED: ALBUTEROL 2.5 MG/3 ML NEB SOL NEB PRN ×2 (03:25→18:00)
[2019-07-04] MEDS ORDERED: NA CHLORIDE 0.9% 250 ML ONE (03:47)
[2019-07-04] MEDS ORDERED: CEFTRIAXONE/SWI 1gm 1 GM/10 ML SYR ONE (03:47)
[2019-07-04] MEDS ORDERED: AZITHROMYCIN 500 MG INJ IVPB ONE (03:47)
[2019-07-04] MEDS: AZITHROMYCIN IV 250 MG in NA CHLORIDE 0.9% 250 ML IVPB SCH (05:13)
--- NOTE | 2019-07-04 07:12 | RAD REPORT ---
EXAM DESCRIPTION: RAD - Chest Single View - 07/04/2019 12:09 am CLINICAL HISTORY: COUGH, fever COMPARISON: Portable September 2017 TECHNIQUE: AP portable chest image was obtained 07/04/2019 12:09 am . FINDINGS: No focal consolidations seen. Minimal stranding in each base is not substantially differen t in is probably atelectasis. Granulomatous changes to the lung parenchyma on the left and the left h ilar region also unchanged. No significant failure or volume overload. Heart and vasculature are norm al. No measurable pleural effusion and no pneumothorax. No acute bony abnormality seen. No acute aort ic findings suspected. IMPRESSION: No focal consolidation. Bilateral lung base stranding favored to be atelectasis.
[2019-07-04] MEDS ORDERED: ACETAMINOPHEN 325 MG TABLET PO PRN (08:04)
[2019-07-04] MEDS ORDERED: LORATADINE 10 MG TAB PO PRN (08:04)
[2019-07-04] MEDS: ASPIRIN 81 MG CHEWABLE TABLET PO SCH (08:59)
[2019-07-04] MEDS: METOPROLOL XL 25 MG TAB PO SCH (09:00)
[2019-07-04] MEDS: DOCUSATE NA 100 MG CAP PO SCH ×2 (09:00→21:00)
[2019-07-04] MEDS: SERTRALINE HCL 100 MG TAB PO SCH (09:00)
[2019-07-04] MEDS: VITAMIN D 5,000 UNIT CAP PO SCH ×2 (09:00→21:00)
[2019-07-04] MEDS: MEMANTINE HCL 10 MG TABLET PO SCH ×2 (09:00→21:00)
[2019-07-04] MEDS ORDERED: D5 0.9 NS 1,000 ML IV SCH (09:00)
--- NOTE | 2019-07-04 10:30 | EKG ---
Test Date: 2019-07-04 Test Time: 02:07:04 Siebel Architect: LIZ MEASUREMENT RESULTS: Intervals: Rate: 45 SC: 166 QRSD: 104 QT: 500 QTc: 432 [place]: P: 68 SC: 166 QRS: -18 T: 63 INTERPRETIVE STATEMENTS: Sinus bradycardia Otherwise normal ECG Compared to ECG 10/09/2017 22:23:51 Sinus rhythm no longer present Intraventricular conduction delay no longer present Electronically Signed On 07-04-19 10:29:02 CDT by Manav Gardner
--- NOTE | 2019-07-04 11:20 | RAD REPORT ---
EXAM DESCRIPTION: CT - Chest For Pe Angio - 07/04/2019 3:08 am CLINICAL HISTORY: The patient is 84 years old and is Male; COUGH TECHNIQUE: Axial computed tomographic angiography images of the chest with intravenous contrast. T his CT exam was performed using one or more of the following dose reduction techniques: automated e xposure control, adjustment of the mA and/or kV according to patient size, and/or use of iterative re construction technique. MIP reconstructed images were created and reviewed. Oblique reformatted images were created and reviewed. DLP: 344 mGy*cm COMPARISON: Chest radiograph of the same day. FINDINGS: PULMONARY ARTERIES: Unremarkable. No pulmonary embolism. AORTA: Calcification of the descending aorta. No thoracic aortic aneurysm. LUNGS: Bibasilar chronic lung changes and/or atelectasis. No focal consolidation. PLEURAL SPACE: Unremarkable. No significant effusion. No pneumothorax. HEART: Unremarkable. No cardiomegaly. No significant pericardial effusion. No evidence of RV dysfunction. MEDIASTINUM: Moderate-sized hiatal hernia. THYROID: Visualized thyroid is normal. BONES/JOINTS: Diffuse osteopenia and multilevel degenerative changes. No acute fracture. No dislocation. SOFT TISSUES: Unremarkable. LYMPH NODES: Calcified prevascular lymph node. LIVER: Multiple hepatic hypodensities measuring up to 5 cm on the left. SPLEEN: Multiple splenic granulomas. KIDNEYS AND URETERS: Subcentimeter left renal cysts. IMPRESSION: 1. No pulmonary embolism. 2. Bibasilar chronic lung changes and/or atelectasis. 3. Multiple hepatic and left renal cysts. 4. Prior granulomatous disease. Electronically signed by: Kenneth Coello DO 07/04/2019 1:21 AM CDT Due to temporary technical issues with the PACS/Fluency reporting system, reports are being signed by the in house radiologist as a courtesy to ensure prompt reporting. The interpreting radiologist is f ully responsible for the content of the report.
[2019-07-04] MEDS: CEFTRIAXONE/SWI 1gm 1 GM/10 ML SYR IV SCH (17:01)
[2019-07-04] MEDS: ATORVASTATIN 20 MG TAB PO SCH (21:00)
[2019-07-04] MEDS: DONEPEZIL HCL 5 MG TAB PO SCH (21:00)
[2019-07-04] MEDS: TAMSULOSIN 0.4 MG SR CAP PO SCH (21:00)
--- NOTE | 2019-07-04 22:05 | HP ---
Date of Admission: 07/04/2019 Chief Complaint: Cough, fever. History Of Present Illness: This 84-year-old male patient living at long term, started to have fe narendra yesterday at the long term with some cough. His chest x-ray done at long term was negative . Influenza test was negative and nurse contacted me with this information. She was advised to send patient to emergency room and within short time after that nurse contacted me and informed me that t he patient's son did not want him to go to the emergency room and wanted to talk to me, so I called t he patient's son immediately, explained him my reasoning behind the patient's visit to emergency room and he agreed and the patient was sent to ER. ER staff was notified. Workup done in the emergency room and patient was admitted to the hospital with urinary tract infection problem. When I saw him t his morning, he was lying in bed, not in any distress. Allergies: NO KNOWN ALLERGIES. Medications: List reviewed. Review of Systems: Respiratory: As mentioned above. Constitutional: As mentioned above. All other systems reviewed and negative. Past Medical History: Senile dementia, hypothyroidism, coronary artery disease, hypertension, hyperl ipidemia, and osteoarthritis at multiple sites. Past Surgical History: Coronary artery angioplasty with stent placement. Family History: Brother had liver cancer. Father, myocardial infarction. Mother, Alzheimer disease and stroke. Social History: Negative for smoking and alcohol use. Physical Examination: Vital Signs: When I saw him this morning, temperature 98.3, pulse 50, respiratory rate 18, blood pre ssure 134/60, oxygen saturation 97%. Height 5 feet 7 inches, weight 128 pounds. General: Awake, alert, oriented, not in distress. HEENT: Head atraumatic, normocephalic. Conjunctivae nonerythematous. Sclerae white. Mouth, no thr ush or edema noted. Ears/Nose, no mass, lesion, discharge noted. Neck: Supple. No JVD, lymph nodes, bruit, thyromegaly noted. Lungs: Bilateral good equal air entry. Clear to auscultation. No rhonchi. No rales. Heart: Normal heart sounds, no murmur or gallop. Abdomen: Soft, bowel sounds normal. No guarding, rigidity, tenderness, mass, hepatosplenomegaly, dis tention, or bruit noted. Extremities: No leg edema. No calf tenderness. Skin: No rash, ulcer, cellulitis. Lymphatics: No lymph node enlargement in neck, supraclavicular, infraclavicular region. Neuro: Patient not oriented at lying in bed, does not answer any simple questions except able to fol low very simple commands like moving hands and legs. Chest: Unremarkable. External Genitalia: Deferred. Rectal: Deferred. Laboratory Data: White count 10.1, hemoglobin 10.4, platelets 327. INR 1.14. Sodium 139, potassium 4.1, chloride 103, bicarb 32, BUN 25, creatinine 1.23, glucose 94. Liver function tests unremarkabl e. Troponin less than 0.02. Procalcitonin less than 0.05. Chest x-ray, no focal consolidation. Bi lateral lung base stranding likely to be atelectasis. CAT scan of the chest per PE protocol, no evid ence of pulmonary embolism, bibasilar chronic lung changes and/or atelectasis. Multiple hepatic and left renal cysts. Prior granulomatous disease. Urinalysis positive for nitrite, 1+ esterase, more t mane 50 wbc, 20-50 bacteria. Impression: 1.Urinary tract infection. 2.Rule out pneumonia. 3.Senile dementia. 4.Coronary artery disease. 5.Hypertension. 6.Hyperlipidemia. 7.Osteoarthritis, multiple sites. 8.Anemia, unspecified. Plan: Admit patient to hospital for further evaluation and management of this problem. Patient also has dysphagia as per my understanding from nursing staff when we called long term to get specific diet order, they also informed us that they are in process of getting speech therapy and modified ba rium swallow test done for further evaluation, so we will go ahead and request evaluation by our central hospitale therapist and depending on speech therapist's recommendation we will provide further recommendatio n. Continue IV antibiotics. Follow up on culture results. Offload heels, change position every 2 h ours air mattress. Fall precautions ordered. SCD was ordered for DVT prophylaxis. I will see him t omorrow for followup. DARREN/MODL Voice ID: [id number]
[2019-07-05] MEDS: AZITHROMYCIN IV 250 MG in NA CHLORIDE 0.9% 250 ML IVPB SCH (05:38)
[2019-07-05] MEDS: CEFTRIAXONE/SWI 1gm 1 GM/10 ML SYR IV SCH ×2 (05:38→17:22)
[2019-07-05] MEDS: D5 0.9 NS 1,000 ML IV SCH ×2 (05:39→11:18)
[2019-07-05 05:40] LABS: Absolute Lymphocytes (CBC) 1.1 K/uL (0.7-4.9); Basophils % 0.4 % (0-1.3); Hematocrit 26.8 % (39.6-49.0); Lymphocytes % 17.2 % (15.3-44.8); MPV 6.6 fL (7.6-11.3); RBC Red Blood Cell Count 3.02 M/uL (4.33-5.43)
[2019-07-05 06:02] LABS: Potassium 3.6 mmol/L (3.5-5.1)
[2019-07-05] MEDS: VITAMIN D 5,000 UNIT CAP PO SCH ×3 (09:00→22:40)
[2019-07-05] MEDS: METOPROLOL XL 25 MG TAB PO SCH (09:00)
[2019-07-05] MEDS: DOCUSATE NA 100 MG CAP PO SCH ×4 (09:00→23:43)
--- NOTE | 2019-07-05 11:11 | RAD REPORT ---
EXAM DESCRIPTION: RAD - Barium Swallow Modified - 07/05/2019 11:04 am CLINICAL HISTORY: Dysphagia COMPARISON: No comparisons TECHNIQUE: The patient was given liquid, semi-solid and solid forms of barium. Lateral view fluorosc opic imaging was performed in conjunction with speech pathology service. FINDINGS: LARYNGRAL PENTRATION: NOT CLEARED DEP TO THE VOCAL CORDS WITH THIN LIQUID AND NECTAR VIA S TRAW. PENTRATION OF RESIDUAL WITH MECH SOFT COUGH WAS DELAYED PHARYNGEAL RESIDUE: MILD-MOD VALLECULAR, PYRIFORM , POSTERIOR WALL OTHER:THERE WAS REDUCED ORAL BOLUS MANIPULATION AND DELAY IN SWALLOW ONSET . THERE IS REDUCED HYOLARY NGEAL ELEVATIO/PROTRACTION , REDUCED EPIGLOTTIC INVERSION AND REDUCED CONTRACTION OF THE POSTERIOR PH ARYNGEAL WALL. PENTRATIONS ARE NOT CLEARED AND LIKELY TO BE ASPIRATED BY WAY OF GRAVITY. LIQUID WAS A ND RESWALLOWED ASSISTS IN MINIMIZING RESIDUAL Total fluoroscopy time: 3 minutes and 42 seconds
[2019-07-05] MEDS: MEMANTINE HCL 10 MG TABLET PO SCH ×2 (12:13→22:41)
[2019-07-05] MEDS: SERTRALINE HCL 100 MG TAB PO SCH (12:13)
[2019-07-05] MEDS: ASPIRIN 81 MG CHEWABLE TABLET PO SCH (12:13)
--- NOTE | 2019-07-05 21:27 | PN ---
Date of Progress Note: 07/05/2019 Subjective: Patient was seen this morning for followup. No new complaints problems reported by the patient, Objective: General: Lying in bed not in distress. Did not answer any questions, but was awake with his eyes open, not in distress. Vital Signs: Reviewed. HEENT: Unremarkable. Lungs: Clear to auscultation. Cardiac: Heart sounds normal. Abdomen: Soft, bowel sounds normal. No guarding, rigidity, tenderness, distention. Extremities: No leg edema. Modified barium swallow and speech therapist's recommendation reviewed today. Impression: 1.Urinary tract infection. 2.Rule out pneumonia. 3.Dysphagia. 4.Coronary artery disease. 5.Senile dementia. Plan: We will continue current antibiotics. Follow up on culture results. Diet was ordered as per speech therapist's recommendation. I will see him tomorrow for followup. DARREN/MODL Voice ID: [id number] Report ID: [id number]
[2019-07-05] MEDS: ATORVASTATIN 20 MG TAB PO SCH (22:40)
[2019-07-05] MEDS: TAMSULOSIN 0.4 MG SR CAP PO SCH (22:40)
[2019-07-05] MEDS: DONEPEZIL HCL 5 MG TAB PO SCH (22:40)
[2019-07-06] MEDS: D5 0.9 NS 1,000 ML IV SCH (01:56)
[2019-07-06] MEDS: CEFTRIAXONE/SWI 1gm 1 GM/10 ML SYR IV SCH (05:08)
[2019-07-06] MEDS: AZITHROMYCIN IV 250 MG in NA CHLORIDE 0.9% 250 ML IVPB SCH (05:08)
[2019-07-06] MEDS: SERTRALINE HCL 100 MG TAB PO SCH (08:26)
[2019-07-06] MEDS: METOPROLOL XL 25 MG TAB PO SCH (08:26)
[2019-07-06] MEDS: MEMANTINE HCL 10 MG TABLET PO SCH (08:26)
[2019-07-06] MEDS: ASPIRIN 81 MG CHEWABLE TABLET PO SCH (08:26)
[2019-07-06] MEDS: VITAMIN D 5,000 UNIT CAP PO SCH (08:28)
[2019-07-06] MEDS: DOCUSATE NA 100 MG CAP PO SCH (08:28)
[2019-07-06 09:34] VITALS: TEMP 98.4
[2019-07-06 10:57] VITALS: O2SAT 95
[2019-07-06 12:53] VITALS: BP 129/62
--- NOTE | 2019-07-06 20:16 | DS ---
Date of Discharge: 07/06/2019 Physical Examination: General: Lying in bed, not in any distress. Vital Signs: Reviewed. HEENT: Unremarkable. Lungs: Clear to auscultation. Heart: Sounds normal. Abdomen: Soft. Bowel sounds normal. No guarding, rigidity, tenderness, distention. Extremities: No leg edema. Discharge Medications And Instructions: 1. Continue all prior home medications. 2. Cefuroxime 250 mg p.o. 2 times a day for 1 week. Hospital Course: 84-year-old male patient living at custodial was admitted to the hospital after he had cough and fever. Please see dictated H and P for more information. Further evaluation in the emergency room revealed presence of urinary tract infection. Patient was started on empiric antibiotics. Urine culture results came back growing citrobacter. Patient had some dysphagia problem and speech therapist was consulted. Modified barium swallow test was done. Speech therapist provided recommendation for diet order and this recommendation should be followed at custodial as well, and such written instruction was placed on the discharge order as well. Overall, otherwise, patient's condition remained stable. Discharge Diagnoses: 1. Urinary tract infection. 2. Senile dementia. 3. Coronary artery disease. 4. Hypertension. 5. Hyperlipidemia. 6. Osteoarthritis, multiple sites. 7. Anemia, unspecified. Laboratory Data: Labs done during this hospitalization: Upon admission, sodium 139, potassium 4.1, chloride 103, bicarb 32, BUN 25, creatinine 1.23, glucose 94. Liver function tests unremarkable. Troponin less than 0.02. Yesterday, sodium 142, potassium 3.6, chloride 108, bicarb 30, BUN 22, creatinine 1.05, glucose 79. Procalcitonin less than 0.05. Upon admission, white count 10.1, hemoglobin 10.4, platelets 327; and yesterday, white count 6.2 , hemoglobin 9, platelets 261. Diet order and instruction per Speech Therapy's recommendation, which was sent to the custodial, includes pureed diet with nectar thick liquids, no straws, recommend strict aspiration precautions, sitting upright with meals, direct supervision/assistance with meals, take small bites/sips, eat/drink slowly, swallow twice, and alternate liquids and solids. DARREN/MODL Voice ID: [id number] Report ID: [id number]
== END 2019-07-06 14:30 | DRG 690 ==
LOC: ER 23:03 → ERHOLD 07-04 03:26 → 2ND 07-04 03:50
PROVIDERS: ADMIT Internal Medicine; ATTEND Internal Medicine
DX: N39.0 Urinary tract infection, site not specified (principal); F03.90 Unspecified dementia, unspecified severity, without behavioral disturbance, psychotic disturbance, mood disturbance, and anxiety; I25.10 Atherosclerotic heart disease of native coronary artery without angina pectoris; I10 Essential (primary) hypertension; E78.5 Hyperlipidemia, unspecified; M19.90 Unspecified osteoarthritis, unspecified site; D64.9 Anemia, unspecified; R13.10 Dysphagia, unspecified
CPT/HCPCS: 36415; 71045; 71275; 74230; 80048; 80076; 81003; 81015; 82150; 82550; 82553; 83605; 83690; 83880; 84145; 84484; 85025; 85610; 85730; 87040; 87077; 87086; 87088; 87186; 87804; 92611; 93005; 94760; 96365; 96368; 99285; J0456; J0696; J7030; J7042; Q9967

== ENCOUNTER 2019-07-25 21:24 | Inpatient (IN) | payer MEDICARE, OTHER ==
[2019-07-25] MEDS ORDERED: NOREPINEPHRINE 4mg/D5W 250mL 4 MG/250 ML BAG IV ONE (21:51)
[2019-07-25 21:59] LABS: Arterial Blood Carboxyhemoglob 0.4 % (0-1.5); Blood Gas Oxyhemoglobin 98.1 % (94-97); Blood O2 Saturation 99.3 % (92-98.5)
[2019-07-25] MEDS ORDERED: SODIUM BICARB 50 MEQ/50ML VIAL ONE ×2 (22:07→22:11)
[2019-07-25] MEDS ORDERED: D5 0.9 NS 1,000 ML IV ONE (22:07)
[2019-07-25 22:21] LABS: Absolute Lymphocytes (CBC) 2.3 K/uL (0.7-4.9); Basophils % 0.2 % (0-1.3); Lymphocytes % 23.7 % (15.3-44.8); MPV 7.3 fL (7.6-11.3); RBC Red Blood Cell Count 2.75 M/uL (4.33-5.43)
--- NOTE | 2019-07-25 22:26 | RAD REPORT ---
EXAM DESCRIPTION: Kaylyn Single View07/25/2019 10:14 pm CLINICAL HISTORY: CPR/ intubation COMPARISON: June 2019 FINDINGS: An endotracheal tube has its tip well above the coby. A nasogastric tube has its tip in the stomach. The lungs appear clear of acute infiltrate. The heart is normal size
[2019-07-25 22:30] LABS: Protime INR 1.36
[2019-07-25 22:56] LABS: Arterial Blood Carboxyhemoglob 0.6 % (0-1.5); Blood Gas Oxyhemoglobin 97.8 % (94-97); Blood O2 Saturation 99.4 % (92-98.5)
[2019-07-25 23:03] LABS: Albumin 1.5 g/dL (3.4-5.0); Alkaline Phosphatase 98 U/L (45-117); BUN Blood Urea Nitrogen 23 mg/dL (7-18); Bicarbonate 23 mmol/L (21-32); Bilirubin Direct < 0.1 mg/dL (0-0.2); Bilirubin Total 0.1 mg/dL (0.2-1.0); Ferritin 2651.8 ng/mL (26-388); Glucose Level 291 mg/dL (74-106); Lipase 164 U/L (73-393); Magnesium 2.4 mg/dL (1.8-2.4); NT PRO-BNP 681 pg/mL (<450); Potassium 3.8 mmol/L (3.5-5.1); Protein, Total 4.9 g/dL (6.4-8.2); Sodium Level 146 mmol/L (136-145); Troponin (Emerg Dept Use Only) 0.07 ng/mL (0.0-0.045)
[2019-07-25 23:04] LABS: ALT/SGPT 330 U/L (12-78); AST/SGOT 355 U/L (15-37)
[2019-07-25] MEDS ORDERED: PIPER/TAZO/NS 3.375gm 3.375 GM/100 ML BAG ONE (23:08)
[2019-07-25] MEDS ORDERED: VANCOMYCIN 1 GM/VIAL ONE (23:08)
[2019-07-25] MEDS ORDERED: NA CHLORIDE 0.9% 250 ML ONE (23:08)
[2019-07-25 23:26] LABS: Blood Morphology Comment NOTED (NOT SEEN); Ovalocytes 2+; Platelet Estimate ADEQ
--- NOTE | 2019-07-26 00:10 | ER ---
Nurse's Notes [facility] Name: Prasanth Barclay Sr Age: 84 yrs Sex: Male : 1935 Arrival Date: 07/25/2019 Time: 21:34 Bed 3 Private MD: Diagnosis: Cardiac arrest;Respiratory failure, unspecified;Hypothermia Presentation: 07/24 21:22 Chief complaint: EMS states: pt was found unresponsive by [facility] staff, who began CPR on sg scene. pt was observed to be WNL five minutes prior to finding him unresponsive per EMS. Care prior to arrival: Oral intubation, oral intubation via I Gel device by [facility] CPR manually performed by EMS and is still in progress IV initiated. 18 GA, in the left antecubital area, Oxygen administered. via AMBU bag. Compressions began prior to arrival. 21:22 Method Of Arrival: EMS: [facility] 21:22 Acuity: MARYLU 1 21:40 Initial Sepsis Screen: Does the patient meet any 2 criteria? HR > 90 bpm. Does the ea patient have a suspected source of infection? No. Patient's initial sepsis screen is negative. Risk Assessment: Do you want to hurt yourself or someone else? Unable to obtain. Onset of symptoms is unknown. 22:56 Coronavirus screen: pt intubated. Ebola Screen: Unable to complete the Ebola screening ea because: Patient is intubated. Initial Sepsis Screen:. Triage Assessment: 22:00 General: Appears comfortable, Behavior is unresponsive. Pain: Unable to use pain scale. ea FLACC scale score is 0 out of 10. Historical: - Allergies: 22:41 No Known Allergies; sg - PMHx: 22:41 Angina; BPH; constipation; Dementia; Depression; DYSPHAGIA; High Cholesterol; sg Hypertension; Hypothyroidism; MUSCLE WEAKNESS; - Immunization history:: Adult Immunizations unknown. - Social history:: Smoking status: Patient denies any tobacco usage or history of. - Unable to obtain history due to: comatose state. Screenin:55 Nutritional screening: pt intubated. Tuberculosis screening: pt intubated. ea 07/25 01:29 Abuse screen: pt intubated. Fall Risk IV access (20 points). Mental Status-. ea Assessment: 07/24 21:20 CPR assessment: unresponsive, no respiratory effort, mechanical ventilation, pale, sg pulses present w/ compressions. Cardiac rhythm is asystole. 21:23 CPR assessment: unresponsive, no respiratory effort, mechanical ventilation, pale, sg pulses present w/ compressions. Cardiac rhythm is asystole. 21:25 CPR assessment: unresponsive, no respiratory effort, mechanical ventilation. Cardiac sg rhythm is bradycardia. 21:25 Reassessment: Right femoral pulse that is weak and slow palpated by , pt sg medicated see EMAR, pt has ROSC at this time. 22:30 Reassessment: notified of pt temp, a ARSALAN hugger has been applied with setting sg of 32 degrees centigrade. 23:38 Reassessment: Patient appears in no apparent distress at this time. a COVID swab has sg been sent, spoke with Mady from the [facility], awaiting a call back form the oncall person for PUI. 07/25 00:00 Reassessment: Pt resting with eyes closed, ETT in place, respirations assisted, ambreen ea breath sounds, NG tube in place to low intermittent suction. Kelley catheter in place to BSD. IV sites intact patent with fluid infusing, not erythema or edema noted. 01:23 Reassessment: pt son Cristino Barclay requests to be notified of any changes in his father sg condition as he is the POA, call back number is [phone]. 01:30 Reassessment: Pt unresponsive, remains on mechanical ventilation. IV patent with ea fluids, kelley catheter to BSD. Pt admitted to ER hold. 01:30 Reassessment: Pt resting with eyes closed, ETT in place resp assisted, ambreen breath ea sounds, NG tube in place to low intermittent suction. Kelley catheter in place to BSD, IV sites intact patent with fluid infusing, no erythema or edema noted. 09:06 Reassessment: [facility] [id number]. Vital Signs: 07/24 21:20 Pulse 0 MON; Resp 22 A; Pulse Ox 78% 15 lpm ; sg 21:25 BP 68 / 32; Pulse 34 RF; Resp 20 A; Pulse Ox 88% 15 lpm ; sg 21:39 BP 98 / 48; Pulse 109 MON; Resp 20 A; Pulse Ox 96% on 15 lpm ETT ambu; sg 22:30 BP 104 / 62; Pulse 107; Resp 16 A; Temp 91.8(R); Pulse Ox 100% on 90% FiO2 ETT vent; sg 23:55 BP 102 / 61; Pulse 109; Resp 18; Temp 91.4(C); Pulse Ox 100% on ETT vent; ea 07/25 02:03 BP 148 / 81; Pulse 109; Resp 17; Temp 91.4; Pulse Ox 100% ; ea 07/24 21:20 Asystole sg 07/24 21:25 with AMBU bag sg ED Course: 21:22 Arm band placed on. EKG completed in triage. Results shown to MD. sg 21:22 Maintain EMS IV. Dressing intact. Site clean \T\ dry. Gauge \T\ site: 18 G LAC. IV is sg patent, with fluids infusing freely. O2 via BVM. Assist ventilation AMBU bag performed by RT Pablo. 21:31 Assisted provider with intubation using 7.5 mm ETT via oral route. ET tube secured at sg 22cm at the teeth. Set up intubation tray. Intubated by Gopal Garrido MD Placement verified by CO2 detector w/ + color change, CXR, Patient tolerated well. 21:34 Patient arrived in ED. cf2 21:38 Kelley cath inserted, using sterile technique, 16 Fr., by ED staff, balloon inflated, to sg gravity drainage, returned no urine at this time. 21:39 Assisted provider with central line placement. Set up central line tray. Triple lumen sg line placed in right femoral. Line placed by Gopal Garrido MD Placement verified by blood return, Dressed with Tegaderm, Blood was collected. Was handwashing/sanitizing done immediately prior to procedure? Yes. Was patient positioned to in a way to prevent air embolism? Yes. Was procedure site sterilized? Yes, with chlorhexidine. Was the site allowed to dry? Yes. Was local anesthetic and/or sedation utilized? Yes. During the procedure, did the Practitioner(s) maintain a sterile field? Yes. Were unused ports clamped during insertion? Yes. Was a 2nd qualified MD obtained after 3 unsuccessful insertion attempts? No. Was blood aspirated from each lumen? Yes. After the procedure, did the Practitioner(s) clean the site and apply a sterile dressing? Yes. 21:40 Initial lab(s) drawn, by ED staff, sent to lab. First set of blood cultures drawn by sg physician. Second set of blood cultures drawn by physician. 21:45 NGT: inserted 18 Fr. via right nare. verified placement of air over stomach, verified sg return of gastric contents, to intermittent suction. Returned gastric contents. Amount of gastric contents removed by suction 200ml. 21:47 Gopal Garrido MD is Attending Physician. rn 21:55 Flu and/or RSV swab sent to lab. Strep swab sent to lab. COVID swab sent to lab. sg 22:14 XRAY Chest (1 view) In Process Unspecified. EDMS 22:[address] via stretcher. sg 22:32 RN/DENTAL INSTRUCTOR escort patient out of department to CT scan with Ambu bag, oxygen, cardiac sg monitor, Respiratory therapist, fuel cell battery technician. 22:36 Moo Christensen, RN is Primary Nurse. sg 22:38 Triage completed. sg 22:40 Patient moved back from CT. sg 22:43 Warm blanket given. sg 22:52 CT Head Brain wo Cont In Process Unspecified. EDMS 22:57 Patient has correct armband on for positive identification. Placed in gown. Bed in low ea position. Call light in reach. Side rails up X2. 23:25 Notified ED physician of a critical lab result(s). ALT 330, AST 355, Bnads 12. sg 23:46 Karen Jeong, DEL is Primary Nurse. ea 23:50 Son's contact information: Cristino Barclay . wy 07/25 00:08 Arabella Holden MD is Hospitalizing Provider. rn 01:34 Patient admitted, IV remains in place. ea 06:06 Notified ED physician of a critical lab result(s). troponin of 79. sg Administered Medications: 07/24 21:24 Drug: EPINEPHrine 0.1mg/mL 1:10,000 1 mg Route: IVP; Site: left antecubital; sg 21:30 Follow up: Response: No adverse reaction ea 21:25 Drug: Sodium Bicarbonate 1 amp Route: IVP; Site: left antecubital; sg 21:30 Follow up: Response: No adverse reaction ea 21:26 Drug: Atropine 1 mg Route: IVP; Site: left antecubital; sg 21:30 Follow up: Response: No adverse reaction ea 21:28 Drug: Sodium Bicarbonate 1 amp Route: IVP; Site: left antecubital; sg 21:30 Follow up: Response: No adverse reaction ea 21:48 Drug: Levophed (4 mg/250 mL D5W 4 mcg/min Route: IV; Rate: calculated rate; Site: right sg femoral; 07/25 06:55 Follow up: Response: No adverse reaction; IV Status: Infusion continued upon admission ea 07/24 21:48 Drug: D5W 1000 ml, Sodium Bicarbonate 150 mEq Route: IV; Rate: 150 calculated rate; sg Site: right femoral; 23:00 Follow up: Response: No adverse reaction; IV Status: Completed infusion ea 22:00 Drug: NS 0.9% 1000 ml Route: IV; Rate: 1000 ml; Site: left antecubital; ea 22:53 Follow up: Response: No adverse reaction; IV Status: Completed infusion; IV Intake: ea 1000ml 23:10 Drug: Zosyn 3.375 grams Route: IVPB; Infused Over: 60 mins; Site: left antecubital; ea 07/25 00:31 Follow up: Response: No adverse reaction; IV Status: Completed infusion ea 00:31 Drug: vancoMYCIN 1 grams Route: IVPB; Infused Over: 2 hrs; Site: left antecubital; ea 01:57 Follow up: Response: No adverse reaction; IV Status: Completed infusion ea 04:00 Drug: Versed 2 mg Route: IVP; Site: left antecubital; ea 04:05 Follow up: Response: No adverse reaction ea Point of Care Testing: Blood Glucose: 07/24 21:39 Blood Glucose: 250 mg/dL; sg Ranges: Intake: 22:53 IV: 1000ml; Total: 1000ml. ea Outcome: 07/25 00:09 Decision to Hospitalize by Provider. rn 01:36 Admitted to ER Hold. Please see [facility] for further documentation. ea 01:36 Condition: stable 11:33 Admitted to ICU accompanied by nurse, accompanied by tech, via stretcher, room 8, with bp oxygen, on monitor, Report called to KEVIN MATHIS 11:33 Outcome Resuscitation successful bp 12:08 Patient left the ED. bp Signatures: Dispatcher [employer] EDMS Moo Christensen RN RN sg Williams, Irene, RN RN Gopal Garrido MD MD rn Thompson, Moriah Karen Perez RN RN ea Peltier, Brian, RN RN Kate Garg cf2 Corrections: (The following items were deleted from the chart) 07/24 22:57 22:48 D5W 1000 ml, Sodium Bicarbonate 150 mEq IV at 150 calculated rate in right sg femoral sg 23:52 23:50 Family member contact information: Cristino Barclay mt mt
--- NOTE | 2019-07-26 00:11 | EDPHYS ---
Physician Documentation [facility] Name: Prasanth Barclay Sr Age: 84 yrs Sex: Male : 1935 Arrival Date: 07/25/2019 Time: 21:34 Bed 3 Private MD: ED Physician Gopal Garrido HPI: 07/24 21:51 This 84 yrs old Male presents to ER via Unassigned with complaints of CPR. rn 21:51 Preceding the arrest, the patient was found down by [facility] staff. The arrest rn occurred at halfway. Pre-hospital course: The arrest was not witnessed by others. Bystanders at the scene performed CPR. EMS care prior to arrival: initiation of ACLS, peripheral IV, intubation with a LMA, 10 minutes elapsed prior to ACLS. ACLS has been in progress for 30 minutes. ACLS details: Initial rhythm was asystole. The presenting rhythm is asystole. Airway: LMA, Response to therapy: return of rhythm, return of pulse. It is unknown whether or not the patient has had similar symptoms in the past. Per halfway, seen about 10 min before arrest, found down, asystole, CPR started, EMS called as sob and starting CPR, asystole entire time for EMS, LMA placed, no details otherwise given by halfway. . Historical: - Allergies: 22:41 No Known Allergies; sg - PMHx: 22:41 Angina; BPH; constipation; Dementia; Depression; DYSPHAGIA; High Cholesterol; sg Hypertension; Hypothyroidism; MUSCLE WEAKNESS; - Immunization history:: Adult Immunizations unknown. - Social history:: Smoking status: Patient denies any tobacco usage or history of. - Unable to obtain history due to: comatose state. ROS: 21:51 Unable to obtain ROS due to comatose state. rn Exam: 21:51 Constitutional: Thin male, LMA in place, no spont cardiac or resp activity. Head/Face: rn Normocephalic, atraumatic. Eyes: Pupils 5mm, nonreactive ENT: No oral trauma or swelling Neck: No crepitus Cardiovascular: No spont activity, warm periphery Respiratory: Coarse bilateral breath sounds Abdomen/GI: soft, non-distended MS/ Extremity: No cyanosis Neuro: GCS 3, LMA Vital Signs: 21:20 Pulse 0 MON; Resp 22 A; Pulse Ox 78% 15 lpm ; sg 21:25 BP 68 / 32; Pulse 34 RF; Resp 20 A; Pulse Ox 88% 15 lpm ; sg 21:39 BP 98 / 48; Pulse 109 MON; Resp 20 A; Pulse Ox 96% on 15 lpm ETT ambu; sg 22:30 BP 104 / 62; Pulse 107; Resp 16 A; Temp 91.8(R); Pulse Ox 100% on 90% FiO2 ETT vent; sg 23:55 BP 102 / 61; Pulse 109; Resp 18; Temp 91.4(C); Pulse Ox 100% on ETT vent; ea 07/25 02:03 BP 148 / 81; Pulse 109; Resp 17; Temp 91.4; Pulse Ox 100% ; ea 07/24 21:20 Asystole sg 07/24 21:25 with AMBU bag sg Procedures: 21:51 CPR: See CPR flow sheet. Initial patient assessment: unresponsive, no respiratory rn effort, pulses present w/ compressions, The presenting cardiac rhythm is asystole. respirations assisted with BVM, Compressions: began Meds given: Atropine Epinephrine regained rhythm, Family notified. Intubation: Ventilated with 100% NRB prior to procedure. O2 saturation prior to procedure was 77 %. Intubated orally using # 4 Leon blade with 7.5 mm ETT. was successful on first attempt. Tube secured with ETT john at right side of mouth measured 22 cm at teeth. Placement verified by CXR, CO2 detector with (+) color change, auscultating bilateral breath sounds, O2 saturation after procedure was 94 %. Patient tolerated well. Central Line: the site was prepped with Betadine, in sterile fashion, a triple lumen catheter was inserted, in the right femoral vein, in 2 attempts. placement was verified, by blood return, the site was dressed with Tegaderm, using sterile technique, the patient tolerated the procedure, well. MDM: 21:47 Patient medically screened. rn 23:57 Differential diagnosis: arrythmia, cardiac arrest, respiratory arrest. Data reviewed: rn vital signs, nurses notes, lab test result(s), EKG, radiologic studies, CT scan, plain films, and as a result, I will admit patient. Counseling: I had a detailed discussion with the patient and/or guardian regarding: the historical points, exam findings, and any diagnostic results supporting the discharge/admit diagnosis, lab results, radiology results, the need for further work-up and treatment in the hospital. Response to treatment: the patient's symptoms have mildly improved after treatment, and as a result, I will admit patient. Admission orders: after a detailed discussion of the patient's condition and case, the admit orders are written by me. ED course: Pt admitted, tested for COVID-19, is in isolation, numerous abnormalities in blood that can be interpreted as either expected s/p CPR, but could also be infectious. Also hypothermic. Notified family of all findings. Will admit to ICU. . 07/24 21:50 Order name: Basic Metabolic Panel rn 07/24 21:50 Order name: CBC with Diff rn 07/24 21:50 Order name: LFT's rn 07/24 21:51 Order name: Magnesium rn 07/24 21:51 Order name: NT PRO-BNP; Complete Time: 23: rn 07/24 21:51 Order name: PT-INR; Complete Time: 23: rn 07/24 21:51 Order name: Troponin (emerg Dept Use Only); Complete Time: 23: rn 07/24 21:51 Order name: Blood Culture Adult (2) rn 07/24 21:51 Order name: C-Reactive Protein; Complete Time: 23: rn 07/24 21:51 Order name: COVID-19 rn 07/24 21:51 Order name: D-Dimer; Complete Time: 23: rn 07/24 21:51 Order name: Ferritin; Complete Time: 23: rn 07/24 21:51 Order name: Flu; Complete Time: 23: rn 07/24 21:51 Order name: Lactate; Complete Time: 23: rn 07/24 21:51 Order name: Lipase; Complete Time: 23: rn 07/24 21:51 Order name: Procalcitonin; Complete Time: 23: rn 07/24 21:51 Order name: Ptt, Activated; Complete Time: 23: rn 07/24 21:51 Order name: Strep; Complete Time: 23: rn 07/24 21:51 Order name: Urine Microscopic Only rn 07/24 21:51 Order name: Basic Metabolic Panel; Complete Time: 23: EDMS 07/24 21:51 Order name: CBC with Automated Diff; Complete Time: 23:29 EDMS 07/24 21:51 Order name: Liver (Hepatic) Function; Complete Time: 23:07 EDMS 07/24 21:51 Order name: Magnesium; Complete Time: 23:07 EDTX 07/24 21:58 Order name: ABG Arterial Blood Gas; Complete Time: 22:22 EDMS 07/24 22:11 Order name: Type And Screen; Complete Time: 00:24 mt 07/24 22:30 Order name: Manual Differential; Complete Time: 23:29 EDMS 07/24 22:48 Order name: Throat Culture EDTX 07/24 22:50 Order name: ABG; Complete Time: 23:07 ea 07/24 23:22 Order name: ABO/RH no charge; Complete Time: 23:29 EDTX 07/25 03:30 Order name: Lactate Sepsis 2 HR Follow-up; Complete Time: 03:54 EDTX 07/24 21:51 Order name: XRAY Chest (1 view); Complete Time: 23:07 rn 07/24 21:51 Order name: EKG; Complete Time: 21:52 rn 07/24 21:51 Order name: Cardiac monitoring; Complete Time: 22:15 rn 07/24 21:51 Order name: EKG - Nurse/Tech; Complete Time: 22:15 rn 07/24 21:51 Order name: IV Saline Lock; Complete Time: 22:15 rn 07/24 21:51 Order name: Labs collected and sent; Complete Time: 22:15 rn 07/24 21:51 Order name: O2 Per Protocol; Complete Time: 22:15 rn 07/24 21:51 Order name: O2 Sat Monitoring; Complete Time: 22:15 rn 07/24 21:51 Order name: Document PUI#; Complete Time: 09:46 rn 07/24 21:51 Order name: Droplet/Contact Precautions; Complete Time: 23:37 rn 07/24 21:51 Order name: Genao; Complete Time: 22:57 rn 07/24 21:51 Order name: Notify Health Dept [phone]/ ; Complete Time: 23:37 rn 07/24 21:51 Order name: Urine Dipstick-Ancillary (obtain specimen); Complete Time: 00:38 rn 07/24 21:51 Order name: CT Head Brain wo Cont rn 07/25 05:57 Order name: CBC with Automated Diff EDMS 07/25 06:01 Order name: Troponin I EDMS 07/25 07:35 Order name: Basic Metabolic Panel EDMS 07/25 07:35 Order name: Liver (Hepatic) Function EDMS 07/25 07:35 Order name: NT PRO-BNP EDMS 07/25 07:35 Order name: Ferritin EDMS 07/25 11:01 Order name: Troponin I EDMS Administered Medications: 21:24 Drug: EPINEPHrine 0.1mg/mL 1:10,000 1 mg Route: IVP; Site: left antecubital; sg 21:30 Follow up: Response: No adverse reaction ea 21:25 Drug: Sodium Bicarbonate 1 amp Route: IVP; Site: left antecubital; sg 21:30 Follow up: Response: No adverse reaction ea 21:26 Drug: Atropine 1 mg Route: IVP; Site: left antecubital; sg 21:30 Follow up: Response: No adverse reaction ea 21:28 Drug: Sodium Bicarbonate 1 amp Route: IVP; Site: left antecubital; sg 21:30 Follow up: Response: No adverse reaction ea 21:48 Drug: Levophed (4 mg/250 mL D5W 4 mcg/min Route: IV; Rate: calculated rate; Site: right sg femoral; 07/25 06:55 Follow up: Response: No adverse reaction; IV Status: Infusion continued upon admission ea 07/24 21:48 Drug: D5W 1000 ml, Sodium Bicarbonate 150 mEq Route: IV; Rate: 150 calculated rate; sg Site: right femoral; 23:00 Follow up: Response: No adverse reaction; IV Status: Completed infusion ea 22:00 Drug: NS 0.9% 1000 ml Route: IV; Rate: 1000 ml; Site: left antecubital; ea 22:53 Follow up: Response: No adverse reaction; IV Status: Completed infusion; IV Intake: ea 1000ml 23:10 Drug: Zosyn 3.375 grams Route: IVPB; Infused Over: 60 mins; Site: left antecubital; ea 07/25 00:31 Follow up: Response: No adverse reaction; IV Status: Completed infusion ea 00:31 Drug: vancoMYCIN 1 grams Route: IVPB; Infused Over: 2 hrs; Site: left antecubital; ea 01:57 Follow up: Response: No adverse reaction; IV Status: Completed infusion ea 04:00 Drug: Versed 2 mg Route: IVP; Site: left antecubital; ea 04:05 Follow up: Response: No adverse reaction ea Point of Care Testing: Blood Glucose: 07/24 21:39 Blood Glucose: 250 mg/dL; sg Ranges: Critical Glucose Levels:Adult <50 mg/dl or >400 mg/dl <40 mg/dl or >180 mg/dl Disposition: 23:59 Critical Care:. rn Disposition: 07/26/19 00:09 Hospitalization ordered by Arabella Holden for Inpatient Admission. Preliminary diagnosis are Cardiac arrest, Respiratory failure, unspecified, Hypothermia. - Bed requested for Intensive Care Unit. - Status is Inpatient Admission. bp - Condition is Serious. - Problem is new. - Symptoms have improved. Critical care time excluding procedures: 23:59 Critical care time: Bedside Care: 30 minutes, Consultation: 5 minutes, Family rn Intervention: 10 minutes. Total time: 45 minutes Signatures: Dispatcher [employer] EDMS Luann Carr Steven, RN RN Gopal Cantu MD MD rn Lasagna, Tonya, RN RN tl1 Karen Jeong RN RN ea Peltier, Brian, RN RN bp Corrections: (The following items were deleted from the chart) 07/25 00:59 00:09 Hospitalization Ordered by A Navin BRASHER for Inpatient Admission. Preliminary tl1 diagnosis is Cardiac arrest; Respiratory failure, unspecified; Hypothermia. Bed requested for Intensive Care Unit. Status is Inpatient Admission. Condition is Serious. Problem is new. Symptoms have improved. rn 10:18 00:59 07/26/2019 00:09 Hospitalization Ordered by A Navin BRASHER for Inpatient Admission. bd Preliminary diagnosis is Cardiac arrest; Respiratory failure, unspecified; Hypothermia. Bed requested for [facility] ER HOLD. Status is Inpatient Admission. Condition is Serious. Problem is new. Symptoms have improved. tl1 12:08 10:18 07/26/2019 00:09 Hospitalization Ordered by A Navin BRASHER for Inpatient Admission. bp Preliminary diagnosis is Cardiac arrest; Respiratory failure, unspecified; Hypothermia. Bed requested for Intensive Care Unit. Status is Inpatient Admission. Condition is Serious. Problem is new. Symptoms have improved. bd
[2019-07-26] MEDS ORDERED: NOREPINEPHRINE 4mg/D5W 250mL 4 MG/250 ML BAG IV ONE (00:17)
[2019-07-26] MEDS ORDERED: NA CHLORIDE 0.9% 1,000 ML ONE (01:45)
[2019-07-26] MEDS ORDERED: MIDAZOLAM HCL 2 MG/2 ML INJ ONE (04:00)
[2019-07-26] MEDS ORDERED: ONDANSETRON 4 MG/2 ML VIAL IV PRN (04:07)
[2019-07-26] MEDS ORDERED: VANCOMYCIN/NS 1 gm 1 GM/250 ML BAG IVPB SCH (04:07)
[2019-07-26] MEDS ORDERED: D5W 1,000 ML with NA BICARB 8.4% 150 MEQ IV SCH ×2 (04:07)
[2019-07-26] MEDS ORDERED: MORPHINE 4 MG/ML SYR IV PRN (04:07)
[2019-07-26] MEDS ORDERED: NS KCL 20MEQ 20 MEQ/1,000 ML BAG IV SCH (04:07)
[2019-07-26] MEDS ORDERED: MORPHINE 2 MG/ML SYR ONE (05:03)
[2019-07-26] MEDS ORDERED: ONDANSETRON 4 MG/2 ML VIAL ONE (05:03)
[2019-07-26] MEDS ORDERED: SODIUM BICARB 50 MEQ/50ML VIAL ONE (05:12)
[2019-07-26] MEDS ORDERED: D5W 1,000 ML IV ONE (05:12)
[2019-07-26] MEDS ORDERED: NS KCL 20MEQ 1,000 ML IV ONE (05:12)
[2019-07-26 05:41] LABS: Absolute Lymphocytes (CBC) 0.7 K/uL (0.7-4.9); Hematocrit 33.4 % (39.6-49.0); Lymphocytes % 4.2 % (15.3-44.8); MPV 6.8 fL (7.6-11.3); RBC Red Blood Cell Count 3.68 M/uL (4.33-5.43)
[2019-07-26 07:30] LABS: Albumin 2.1 g/dL (3.4-5.0); Bilirubin Direct 0.1 mg/dL (0-0.2); Bilirubin Total 0.3 mg/dL (0.2-1.0); Ferritin 4575.8 ng/mL (26-388); Potassium 3.2 mmol/L (3.5-5.1); Protein, Total 6.4 g/dL (6.4-8.2)
--- NOTE | 2019-07-26 08:21 | RAD REPORT ---
EXAM DESCRIPTION: CT - Head Brain Wo Cont - 07/25/2019 10:52 pm CLINICAL HISTORY: 84 years Male found down, post-cpr COMPARISON: None TECHNIQUE: Images were obtained in axial, sagittal, and coronal planes. This exam was performed according to our departmental dose-optimization program which includes use of Automated Exposure Control, adjustment of the mA and/or kV according to patient size and/or use o f iterative reconstruction technique. FINDINGS: Ventricular system is moderately enlarged. Moderate prominence of the cortical sulci. Mode rate cerebral volume loss. No abnormal areas of increased attenuation seen. No extra-axial fluid collections noted. No evidence for skull fracture. Symmetric aeration mastoid air cells bilaterally. Mild mucosal thicke eyad ethmoid sinuses bilaterally. IMPRESSION: No acute intracranial abnormality. No evidence for hemorrhage, mass lesion, or large acu te infarction. Age-appropriate changes. Electronically signed by: Judith Guevara MD 07/25/2019 11:04 PM CDT Due to temporary technical issues with the PACS/Fluency reporting system, reports are being signed by the in house radiologist as a courtesy to ensure prompt reporting. The interpreting radiologist is f ully responsible for the content of the report.
[2019-07-26] MEDS: ENOXAPARIN 40 MG/0.4 ML SQ SCH (09:00)
[2019-07-26] MEDS ORDERED: PIPER/TAZO/NS 3.375gm 3.375 GM/100 ML BAG IVPB SCH (09:00)
[2019-07-26] MEDS ORDERED: ENOXAPARIN 40 MG/0.4 ML SQ ONE (09:47)
[2019-07-26] MEDS ORDERED: PIPER/TAZO/NS 3.375gm 3.375 GM/100 ML BAG ONE (09:47)
[2019-07-26] MEDS ORDERED: NA CHLORIDE 0.9% 1,000 ML IV ONE (12:34)
[2019-07-26] MEDS ORDERED: Ringers Lactate 1,000 ML IV ONE (12:48)
--- NOTE | 2019-07-26 12:50 | P.CNS ---
Date of Consult: 07/26/19 Reason for Consult: Respiratory failure and shock Allergies No Known Allergies Allergy (Unverified 07/13/16 23:34) Home Medications: Acetaminophen [Tylenol Extra Strength] 500 mg PO Q6HP PRN 07/04/19 Acetaminophen [Tylenol] 650 mg PO DAILY 07/04/19 Acetaminophen [Tylenol] 650 mg PO Q6HP PRN 07/04/19 Aspirin Chewable [Aspirin Chewable*] 81 mg PO DAILY 07/04/19 Atorvastatin Calcium [Lipitor] 20 mg PO BEDTIME 07/04/19 Cholecalciferol (Vitamin D3) [Vitamin D 5,000 Iu Cap] 5,000 unit PO BID 07/04/19 Docusate [Colace Cap] 100 mg PO BID 07/04/19 Donepezil HCl [Aricept] 23 mg PO BEDTIME 07/04/19 Loratadine [Claritin] 10 mg PO DAILYPRN PRN 07/04/19 Memantine HCl 10 mg PO BID 07/04/19 Metoprolol Succinate [Toprol Xl] 25 mg PO DAILY 07/04/19 Sertraline HCl 100 mg PO DAILY 07/04/19 Tamsulosin [Flomax] 0.4 mg PO BEDTIME 07/04/19 Cefuroxime [Ceftin*] 250 mg PO BID 5 Days #10 tab 07/06/19 - Past Medical/Surgical History -: Angina -: BPH -: Dementia -: Depression -: Dysphagia -: High Cholesterol -: Hypertension -: Hypothyrodism -: Muscle Weakness - Social History Smoking Status: Unknown if ever smoked Place of Residence: [facility] Physical Examination Temp Pulse Resp BP Pulse Ox 95.3 F L 65 16 113/69 100 07/26/19 11:00 07/26/19 11:00 07/26/19 11:00 07/26/19 11:00 07/26/19 11:00 Laboratory Data (last 24 hrs) 07/25/19 21:48: PT 16.0 H, INR 1.36, APTT 57.0 H 07/25/19 21:48: WBC 9.9, Hgb 8.0 L, Hct 26.0 L, Plt Count 223 07/25/19 21:48: Sodium 146 H, Potassium 3.8, BUN 23 H, Creatinine 1.65 H, Glucose 291 H, Magnesium 2.4, Total Bilirubin 0.1 L, AST 355 H*, ALT 330 H*, Alkaline Phosphatase 98, Lipase 164
[2019-07-26 13:12] LABS: Magnesium 1.9 mg/dL (1.8-2.4); Potassium 3.3 mmol/L (3.5-5.1)
[2019-07-26] MEDS: NOREPINEPHRINE 4 MG in D5W 250 ML IV PRN (13:51)
[2019-07-26 14:41] LABS: Blood Gas Oxyhemoglobin 95.7 % (94-97); Blood O2 Saturation 97.7 % (92-98.5)
--- NOTE | 2019-07-26 15:52 | EKG ---
Test Date: 2019-07-25 Test Time: 21:54:22 Packing House Supervisor: SWG MEASUREMENT RESULTS: Intervals: Rate: 83 ND: 208 QRSD: 132 QT: 444 QTc: 521 [place]: P: 82 ND: 208 QRS: 57 T: 82 INTERPRETIVE STATEMENTS: Normal sinus rhythm Nonspecific intraventricular block Cannot rule out Anterior infarct, age undetermined Abnormal ECG Compared to ECG 07/25/2019 21:44:13 Myocardial infarct finding now present Left bundle-branch block no longer present Electronically Signed On 07-26-19 15:49:52 CDT by Manav Gardner
--- NOTE | 2019-07-26 15:52 | EKG ---
Test Date: 2019-07-25 Test Time: 21:44:13 Direct Customer Service Representative: SWG MEASUREMENT RESULTS: Intervals: Rate: 85 MD: 224 QRSD: 150 QT: 442 QTc: 525 [place]: P: -63 MD: 224 QRS: 61 T: 98 INTERPRETIVE STATEMENTS: Unusual P axis, possible ectopic atrial rhythm with premature atrial complexes with aberrant conduction Left bundle branch block Abnormal ECG Compared to ECG 07/04/2019 02:07:04 Left bundle-branch block now present Sinus bradycardia no longer present Electronically Signed On 07-26-19 15:50:13 CDT by Manav Gardner
--- NOTE | 2019-07-26 15:52 | EKG ---
Test Date: 2019-07-25 Test Time: 23:36:41 Wildlife Policy Professional: YULISSA MEASUREMENT RESULTS: Intervals: Rate: 108 WI: 192 QRSD: 164 QT: 394 QTc: 527 [place]: P: 32 WI: 192 QRS: -39 T: 127 INTERPRETIVE STATEMENTS: Sinus tachycardia Left axis deviation Left bundle branch block Abnormal ECG Compared to ECG 07/25/2019 21:54:22 Left-axis deviation now present Left bundle-branch block now present Sinus rhythm no longer present Myocardial infarct finding no longer present Electronically Signed On 07-26-19 15:49:50 CDT by Manav Gardner
[2019-07-26] MEDS: PIPER/TAZO/NS 3.375gm 3.375 GM/100 ML BAG IVPB SCH (16:25)
[2019-07-26] MEDS ORDERED: KCL 20 MEQ/100 mL IVPB 20 MEQ/100 ML BAG IV SCH (17:00)
--- NOTE | 2019-07-26 23:54 | HP ---
Date of Admission: 07/26/2019 Chief Complaint: Cardiac arrest. History Of Present Illness: 84-year-old male patient living at [facility], was found unre sponsive last night and 911 was called. Patient was sent to emergency room. [facility] at jail and EMS brought him to the ER. Patient was intubated after either before he came to the ER in ambulance or after he came to ER. He was able to regain pulse. Patient was extremely acidotic when he came into the ER. He was given IV fluid. Vasopressor medication was started this m orning. When I saw him, he was in the emergency room unresponsive, dilated fixed pupils on ventilato r. There is no report of any fever or any unusual complaints by jail staff until this acute change in his condition last night. Allergies: NO KNOWN ALLERGIES. Medications: List reviewed. Review of Systems: Cardiovascular: As mentioned above. All other systems unable to obtain because patient is unresponsive and as per jail staff, no other change or complaints noted recently. Past Medical History: Significant for senile dementia, hypothyroidism, coronary artery disease, hype rtension, hyperlipidemia, osteoarthritis at multiple sites. Past Surgical History: Coronary artery angioplasty with stent placement. Family History: Brother had liver cancer. Father, myocardial infarction. Mother, Alzheimer disease and stroke. Social History: Negative for smoking, alcohol use. Physical Examination: Vital Signs: This morning last vital signs temperature 95.1, pulse 66, respiratory rate 16, blood pr essure 117/68, oxygen saturation 100% on ventilator. Height 5 feet 8 inches, weight 170 pounds. General: Awake, alert, oriented, not in distress. HEENT: Head atraumatic, normocephalic. Conjunctivae nonerythematous. Sclerae white. Mouth, presen ce of endotracheal tube. No thrush or edema noted. Ears/Nose, no mass, lesion, discharge noted. Neck: Supple. No JVD, lymph nodes, bruit, thyromegaly noted. Lungs: Bilateral good equal air entry. Clear to auscultation. No rhonchi. No rales. Heart: Normal heart sounds, no murmur or gallop. Abdomen: Soft, bowel sounds normal. No guarding, rigidity, tenderness, mass, hepatosplenomegaly, dis tention, or bruit noted. Extremities: Right groin has femoral line catheter in place. Skin: No rash, ulcer, cellulitis. Lymphatics: No lymph node enlargement in neck, supraclavicular, infraclavicular region. Neuro/WINDOW ASSEMBLER: Patient is unresponsive, does not respond to any painful stimuli and pupils fix and dilat ed. Chest: Unremarkable. External Genitalia: Deferred. Rectal: Deferred. Laboratory Data: White count 9.9, hemoglobin 8, platelets 223. Repeat white count 16.6, hemoglobin 11, platelets 326. D-dimer 77,138. INR 1.36. Initial blood gas, pH 7.04, pCO2 65.8, pO2 525, oxyge n saturation 99.3% on 100% FiO2. Initial sodium 146, potassium 3.8, chloride 106, bicarb 23, BUN 23, creatinine 1.65, glucose 291, lactic acid 14.7, SGOT 355, SGPT 330, and troponin 0.07. His repeat c hemistry, sodium 145, potassium 3.2, chloride 107, BUN 26, creatinine 1.82, glucose 218, SGOT 891, SG PT 562, troponin 79. Chest x-ray, no acute cardiopulmonary changes. Endotracheal tube with tip well above the coby. Impression: 1.Cardiac arrest. 2.Coronary artery disease. 3.Acute respiratory failure. 4.Hypokalemia. 5.Acute kidney injury. 6.Hypertension. 7.Senile dementia. 8.Hyperlipidemia. Plan: Admit the patient to hospital for further evaluation and management of this problem. Patient is appropriate for inpatient and is expected to spend 2 midnights in hospital. Patient will be admit karyn to ICU. COVID19 test was done, result pending. Consult Dr. Jackson from Pulmonary. Vasopresso r medication was given for low blood pressure. IV fluid will be given. Replace potassium per protoc ol. I will communicate with the patient's son and discussed about advanced directives. Overall, pro gnosis is very poor and patient is not likely to survive this hospitalization. DARREN/MODL Voice ID: [id number]
[2019-07-27 05:22] LABS: Absolute Lymphocytes (CBC) 0.7 K/uL (0.7-4.9); Basophils % 0.1 % (0-1.3); Hematocrit 27.8 % (39.6-49.0); Lymphocytes % 4.4 % (15.3-44.8); MPV 6.9 fL (7.6-11.3); RBC Red Blood Cell Count 3.15 M/uL (4.33-5.43)
[2019-07-27] MEDS ORDERED: VANCOMYCIN 1.25 GM in NA CHLORIDE 0.9% 250 ML IVPB SCH (06:00)
[2019-07-27 07:59] LABS: Albumin 1.7 g/dL (3.4-5.0); Bilirubin Direct 0.1 mg/dL (0-0.2); Bilirubin Total 0.3 mg/dL (0.2-1.0); Ferritin 1604.9 ng/mL (26-388); Potassium 4.3 mmol/L (3.5-5.1); Protein, Total 5.4 g/dL (6.4-8.2)
--- NOTE | 2019-07-27 08:06 | RAD REPORT ---
EXAM DESCRIPTION: Kaylyn Single View07/27/2019 7:10 am CLINICAL HISTORY: Chest pain COMPARISON: July 24 FINDINGS: Endotracheal tube has retracted. The tip lies 6 centimeters above the coby Nasogastric tube is present stomach Mild left basilar opacities are suspected The heart is normal size IMPRESSION: Endotracheal tube has retracted with its tip 6 centimeters above the coby
[2019-07-27] MEDS: ENOXAPARIN 40 MG/0.4 ML SQ SCH (08:48)
[2019-07-27] MEDS: PIPER/TAZO/NS 3.375gm 3.375 GM/100 ML BAG IVPB SCH ×3 (08:48→17:52)
--- NOTE | 2019-07-27 08:51 | P.PN ---
Subjective Date of Service: 07/27/19 Chief Complaint: Respiratory failure Patient is in a coma unresponsive minimal Levophed and oxygen family members request withdrawal of care Review of Systems is unable to be obtained Physical Examination - Vital Signs Temperature: 98.9 F Blood Pressure: 112/66 Pulse: 87 Respirations: 14 Pulse Ox (%): 98 - Physical Exam General: Comatose Respiratory: Clear to auscultation bilaterally - Studies Microbiology Data (last 24 hrs): 07/25/19 22:19 Nasopharnyx Coronavirus COVID-19 PCR - Final Assessment & Plan - Problems (Diagnosis) (1) Cardiac arrest Current Visit: Yes Status: Acute Plan: Patient is 84 years of age admitted with cardiopulmonary arrest is currently in coma unresponsive minimal vasopressor treatment oxygen requirement is only 30% chest x-ray clear no evidence of sepsis agree with withdrawal of care as per family wishes prognosis very poor pupil still fixed and dilated S the the nursing staff patient has multiorgan failure renal failure abnormal liver function test which ever improving no gag reflex antibiotics can be Dc
[2019-07-27 14:47] LABS: C.diff Antigen/Toxin Ag neg : Tox neg (NEG : NEG)
--- NOTE | 2019-07-27 19:38 | PN ---
Date of Progress Note: 07/27/2019 Subjective: Patient was seen this morning for followup lying in bed in ICU on ventilator. Continues to remain unresponsive. Objective: Vital Signs: Reviewed HEENT: Unremarkable except fixed and dilated pupils. Lungs: Bilateral good equal air entry. Heart: Sounds normal. Abdomen: Soft. Bowel sounds normal. No guarding, rigidity, tenderness, or distention. Extremities: No leg edema. Laboratory Data: White count 15.2, hemoglobin 9.2, platelets 226. Lactic acid level 3.2. Impression: 1.Cardiac arrest. 2.Acute respiratory failure. 3.Coronary artery disease. Plan: Patient continues to remain unresponsive, comatose, with dilated fixed pupil, has multiorgan f ailure with abnormal kidney functions, abnormal liver function, respiratory failure, etc. He is not likely to survive this hospitalization. Patient's both sons have made a decision to withdraw life douglass pport tomorrow and they will sign appropriate paperwork tomorrow and will withdraw life support tomor row after that. As per my best medical judgment, the patient will not be able to survive for any sig nificant period of time once the life support is withdrawn. I did reach out to patient's son this ev ening, and he did confirm with me about decision of withdrawal of life support as well as he was notified about COVID-19 test results, which came back negative. DARREN/MODL Voice ID: [id number] Report ID: [id number]
[2019-07-28] MEDS: PIPER/TAZO/NS 3.375gm 3.375 GM/100 ML BAG IVPB SCH ×2 (01:38→09:00)
[2019-07-28 06:15] VITALS: BMI 21.4
[2019-07-28] MEDS: NOREPINEPHRINE 4 MG in D5W 250 ML IV PRN (07:30)
[2019-07-28 08:51] VITALS: O2SAT 100
[2019-07-28] MEDS: ENOXAPARIN 40 MG/0.4 ML SQ SCH (09:00)
[2019-07-28 09:22] VITALS: TEMP 97.5
--- NOTE | 2019-07-28 11:33 | PN ---
Date of Progress Note: 07/28/2019 Subjective: Patient was seen this morning for followup. He remains in ICU. He is COVID-19 test cam e back negative, so he is no longer in isolation anymore. Remains on ventilator and continues to rem ain comatose. No response to painful stimuli. Pupils remains fixed and dilated. Objective: Vital Signs: Reviewed. Intake and output records reviewed. HEENT: Unremarkable. Lungs: Clear to auscultation. Heart: Sounds normal. Abdomen: Soft, bowel sounds normal. No guarding, rigidity, tenderness, distention. Extremities: Edema of both upper extremity. Impression: 1.Cardiac arrest. 2.Respiratory failure. 3.Coronary artery disease. Plan: Patient has cardiac arrest with multiorgan failure. His condition has not improved. He fahad nues to remain comatose with fixed dilated pupils and he is dependent on ventilator. He has not allan thed over the ventilator setting. Today, the patient's family will come, sign request for withdrawal of life support and after that, we will extubate him and it is expected that the patient will not douglass rvive for any length of time, and we will try to keep him comfortable after that. DARREN/MODL Voice ID: [id number] Report ID: [id number]
[2019-07-28 11:50] VITALS: BP 103/67
--- NOTE | 2019-07-30 14:10 | DS ---
Date of Discharge: 07/28/2019 Disposition: Patient . Physical Examination: HEENT: Unremarkable. Lungs: Clear to auscultation. Cardiac: Heart sounds normal. Abdomen: Soft, bowel sounds normal. No guarding, rigidity, tenderness, or distention. Extremities: No leg edema. Laboratory Data: Upon admission, white count 9.9, hemoglobin 8, platelets 223, that was on 0. On 07/26/2019, white count 16.6, hemoglobin 11, platelets 326. On 07/27/2019, white count 15.2, hemoglobin 9.2, platelets 226. On arrival to ER, blood gas on 07/25/2019, pH 7.04, pCO2 of 65.8, pO2 of 525 on 100% FiO2. Last blood gas on 07/26/2019, pH 7.54, pCO2 of 29.3, pO2 of 80 on 30% FiO2. L ast chemistry on 07/27/2019, sodium 145, potassium 4.3, chloride 109, bicarb 28, BUN 36, creatinine 2 .55, glucose 93. AST 369, ALT 326. Last troponin 140. Hospital Course: This is an 84-year-old male patient living at [facility], was sent to emergency r oom after he was found unresponsive. 911 was called and patient was in cardiac arrest. CPR was star karyn by EMS. Patient was brought into emergency room. He was intubated and admitted to ICU. He was extremely acidotic in the beginning and vasopressor medication was given because he was hypotensive. IV fluid resuscitation was given and the patient was also given bicarb. Empiric antibiotics were st arted. Patient was admitted to intensive care unit. He also had hypothermia and warming blankets we re given. Patient continued to remain unresponsive, remained on ventilator. Dr. Jackson from [facility] was consulted. Patient had fixed dilated pupil from the time of admission with absent gag refle x. He never recovered from this and family was made aware of all these details and patient's both so n. They gave us their decision of do not resuscitate and order was placed in the chart and also the patient's son. They both agreed to withdraw life support and within short time after withdrawal shimon ent . Final Diagnoses: 1.Cardiac arrest. 2.Coronary artery disease. 3.Acute respiratory failure. 4.Hypokalemia. 5.Acute kidney injury. 6.Senile dementia. 7.Hyperlipidemia. DARREN/MODL Voice ID: [id number] Report ID: [id number]
== END 2019-07-28 13:05 | disposition expired | DRG 296 ==
LOC: ER 21:24 → ERHOLD 07-26 01:15 → 3RD-ICU 07-26 11:30
PROVIDERS: ADMIT Internal Medicine; ATTEND Internal Medicine
PROC: 5A1945Z Respiratory Ventilation, 24-96 Consecutive Hours (ICD-10-PCS; principal; 2019-07-26)
PROC: 0BH17EZ Insertion of Endotracheal Airway into Trachea, Via Natural or Artificial Opening (ICD-10-PCS; 2019-07-26)
DX: I46.9 Cardiac arrest, cause unspecified (principal); J96.00 Acute respiratory failure, unspecified whether with hypoxia or hypercapnia; N17.9 Acute kidney failure, unspecified; T68.XXXA Hypothermia, initial encounter; I95.9 Hypotension, unspecified; Z66 Do not resuscitate; I25.10 Atherosclerotic heart disease of native coronary artery without angina pectoris; E87.6 Hypokalemia; F03.90 Unspecified dementia, unspecified severity, without behavioral disturbance, psychotic disturbance, mood disturbance, and anxiety; E78.5 Hyperlipidemia, unspecified; I10 Essential (primary) hypertension; Z95.5 Presence of coronary angioplasty implant and graft; Z11.59 Encounter for screening for other viral diseases; Z79.82 Long term (current) use of aspirin; Z79.899 Other long term (current) drug therapy
CPT/HCPCS: 31500; 36415; 51702; 70450; 71045; 80048; 80076; 80202; 82728; 82805; 82947; 83605; 83690; 83735; 83880; 84145; 84484; 85025; 85379; 85610; 85730; 86140; 86850; 86900; 86901; 87040; 87070; 87081; 87324; 87449; 87804; 92950; 93005; 94002; 94003; 94760; 99291; 99292; J1650; J2250; J2270; J2405; J2543; J7030; J7042; J7060; U0001